=== PATIENT | male | born 1955 | race Caucasian/White ===

== ENCOUNTER 2019-05-12 07:32 | Outpatient (CLI) | payer OTHER ==
--- NOTE | 2019-05-12 11:24 | CT ---
CT OF THE ABDOMEN AND PELVIS WITH IV CONTRAST: HISTORY: Generalized abdominal pain and bloating for the last 2 months status EGD and colonoscopy. CONTRAST: 7 cc Isovue 370. COMPARISON: None. FINDINGS: There is mild right basilar atelectasis. There is elevation of the right hemidiaphragm. There is diffuse fatty infiltration. There is a hypodense mass within the medial left hepatic lobe t hat demonstrates internal Hounsfield characteristics on this postcontrast examination to be consisten t with a small cyst. There are additional hypodensities within the right and left hepatic lobe that cannot be characterized completely on this single-phase contrast-enhanced exam. There is a lesion wi thin the upper medial left hepatic lobe measuring 11.9 cm on image 27 of series 2. There is a subcen timeter lesion within the medial left hepatic lobe on image 27 of series 2 also present. There is an additional 9 mm lesion within the anterior right hepatic lobe on image 23 of series 2. This is seen in the background of fatty infiltration. There are numerous calcifications seen involving the pancreatic parenchyma likely related to chronic pancreatitis. No focal pancreatic lesion is evident. No drainable focal fluid collection is noted. No pathologically enlarged lymph nodes are evident within the upper abdomen. The adrenal glands and both kidneys appear within normal limits. The spleen is normal in size measur ing 10 cm. There are moderate calcifications involving the abdominopelvic vasculature. There is mild ectasia in volving the proximal infrarenal abdominal aorta measuring 2.6 cm on image 51 of series 2. No free fluid or enlarged lymph nodes are evident within the pelvis. The bladder is decompressed. T he rectum and perirectal soft tissues are unremarkable-appearing. The small and large bowel are of n ormal caliber. There is a normal appendix in the right lower quadrant. There is beam scattered artifact from the patient's left total hip prosthesis. There is scattered de generative and osteoarthritic change. 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 There are DISH-like abhijit nges involving the mid to lower thoracic spine. No syndesmotic formation is evident involving the lo wer lumbar spine to suggest the presence of an ankylosing spondylitis. No acute osseous abnormality is evident. IMPRESSION: 1. Hepatic hypodensities incompletely characterized on the current examination. I would recommend a followup CT of the abdomen utilizing a multiphase CT evaluation such as hepatic hemangioma protocol. This would be helpful to better characterize these lesions within the right and left hepatic lobe. The largest is seen within the medial left hepatic lobe measuring 2.2 cm and has internal Hounsfield characteristics of approximately 14 and consistent with a cyst. As a conservative measure, would re commend a followup CT evaluation for more definitive characterization. 2. CT changes of chronic pancreatitis. 3. Mild fatty liver. 4. Ankylosis of the sacroiliac joints. No definite flowing syndesmophyte formation is evident invol ving the lumbar spine. There are some mild diffuse idiopathic skeletal hyperostosis-like changes inv olving the lower thoracic and upper lumbar spine. The ankylosis of the sacroiliac joints is likely d egenerative in nature. 5. Mild ectasia of the infrarenal abdominal aorta with moderate vascular calcification. POS: OFF
[2019-05-12] MEDS ORDERED: ISOVUE-370 76%-LOCM 1 ML ONE (11:57)
== END 2019-05-12 07:33 | disposition home or self-care (01) ==
LOC: BICCT 07:32
PROVIDERS: ATTEND Internal Medicine Gastroenterology
DX: R10.9 Unspecified abdominal pain (principal); R93.2 Abnormal findings on diagnostic imaging of liver and biliary tract; K86.1 Other chronic pancreatitis; K76.0 Fatty (change of) liver, not elsewhere classified; M43.28 Fusion of spine, sacral and sacrococcygeal region; I77.811 Abdominal aortic ectasia; I70.90 Unspecified atherosclerosis
CPT/HCPCS: 74177; 82565; Q9966

== ENCOUNTER 2019-09-15 09:10 | Outpatient (CLI) | payer MEDICARE | END 2019-09-15 09:11 | disposition home or self-care (01) | LOC: CTENTCT 09:10 | PROVIDERS: ATTEND Student in an Organized Health Care Education/Training Program | DX: J32.9 Chronic sinusitis, unspecified (principal) | CPT/HCPCS: 70486 ==

== ENCOUNTER 2019-09-22 08:52 | Outpatient (CLI) | payer MEDICARE ==
--- NOTE | 2019-09-22 11:09 | MRI ---
MRI of thecervical spine: 09/22/2019 COMPARISON:None available HISTORY:Cervical radiculopathy TECHNIQUE: Multiplanar multisequence MR imaging of thecervical spine without contrast Findings:The sagittal STIR imaging demonstrates no focal area of osseous marrow edema. There is mild degenerative change at the atlantoaxial interspace. No anterolisthesis or retrolisthesi s is noted within the cervical spine. C2-3: No central canal or left neural foraminal stenosis. Mild right facet and uncovertebral osteophy te formation with mild right neural foraminal stenosis. C3-4: There is disc desiccation with mild disc space narrowing and mild disc bulge partially effacing the ventral thecal sac and causing mild central canal stenosis. Bilateral facet and uncovertebral osteophyte formation noted with moderate/severe bilateral neural foraminal stenosis, right greater th an left. C4-5: There is disc space narrowing with disc desiccation and disc bulge effacing the ventral thecal sac and causing a moderate/severe central canal stenosis. Bilateral facet and uncovertebral osteophyte formation with severe bilateral neural foraminal stenosis. C5-6: Disc space narrowing with disc desiccation and disc bulge. Mild central canal stenosis. Bilater al facet and uncovertebral osteophyte formation. Mild/moderate left neural foraminal stenosis. Severe right neural foraminal stenosis. C6-C7: There is disc space narrowing with disc desiccation and disc bulge. There is a small superimpo sed right paracentral disc protrusion. Mild central canal stenosis laterally on the left. Bilateral facet and uncovertebral osteophyte formation with moderate/severe bilateral neural foramina l stenosis. C7-T1: No significant central canal or neural foraminal stenosis. No focal area of abnormal signal intensity identified within the cervical cord IMPRESSION:Prominent multilevel cervical spine degenerative change as detailed above.
== END 2019-09-22 08:53 | disposition home or self-care (01) ==
LOC: BICMRI 08:52
PROVIDERS: ATTEND Specialist
DX: M47.22 Other spondylosis with radiculopathy, cervical region (principal)
CPT/HCPCS: 72141

== ENCOUNTER 2020-02-13 14:58 | Outpatient (CLI) | payer MEDICARE ==
--- NOTE | 2020-02-13 15:29 | RAD ---
RIGHT SHOULDER THREE VIEWS: 02/13/20 HISTORY: Right shoulder pain. FINDINGS/IMPRESSION: There are degenerative changes in the acromioclavicular joint. No fracture, dislocation, or bony dest ruction is seen. POS: [facility]
== END 2020-02-13 14:59 | disposition home or self-care (01) ==
LOC: BICRAD 14:58
PROVIDERS: ATTEND Nurse Practitioner Family
DX: M25.511 Pain in right shoulder (principal); M19.011 Primary osteoarthritis, right shoulder

== ENCOUNTER 2020-10-22 09:07 | Outpatient (CLI) | payer MEDICARE ==
--- NOTE | 2020-10-22 09:46 | CT ---
Exam: Noncontrast chest CT; CT lung scan low dose HISTORY:Low-dose screening lung CT. Nicotine dependence. Former smoker. 30 posterior smoking history. COMPARISON: None TECHNIQUE: Low-dose screening lung CT is performed utilizing institutional protocol FINDINGS: Lung screening specific (LUNG-RADS): Category 1. Negative exam. No suspicious masses or nodules. Potential significant incidentals (lung RADS category S): None Pulmonary incidentals:There is evidence of scarring and mild emphysematous changes involving both upp er lobes. Additional areas of atelectasis and scarring are noted in both lower lobes. There is a pleural-based density abutting the middle lobe, measuring 0.3 cm. Subpleural lymph node is favored. Other incidentals: Minimal coronary disease. Minimal atherosclerosis of a nonaneurysmal aorta. Puncta te calcifications along the pancreatic parenchyma are presumed to be due to remote bouts of infection/inflammation. There is elevation the right hemidiaphragm. Correlate for right hemidiaphragm atic paralysis IMPRESSION: 1. Lung RADS category 1. Negative exam. No suspicious masses or nodules 2. Lung Rask category S: Negative. No new or unknown potential significant incidental findings requir ing urgent additional evaluation 3. Other incidentals as above. Possible right hemidiaphragmatic paralysis. Additional evaluation if c linically warranted Recommendation: Continued routine annual low-dose lung screening CT. Follow-up in one year.
== END 2020-10-22 09:08 | disposition home or self-care (01) ==
LOC: BICCT 09:07
PROVIDERS: ATTEND Registered Nurse
DX: Z12.2 Encounter for screening for malignant neoplasm of respiratory organs (principal); Z87.891 Personal history of nicotine dependence; I70.0 Atherosclerosis of aorta; J98.6 Disorders of diaphragm; I25.10 Atherosclerotic heart disease of native coronary artery without angina pectoris; K86.89 Other specified diseases of pancreas
CPT/HCPCS: 71271

== ENCOUNTER 2021-07-02 07:04 | Inpatient (IN) | payer MEDICARE ==
[2021-07-02 08:09] LABS: #Eosinphils 0.1 thou/uL (0.0-0.7); #Lymphocytes 1.1 thou/uL (1.20-3.40); #Monocytes 0.4 thou/uL (0.11-0.59); #Neutrophils 6.2 thou/uL (1.40-6.50); %Basophils 0.3 % (0.0-1.0); %Eosinophils 0.6 % (0.0-10.0); %Lymphocytes 13.6 % (21.0-51.0); %Monocytes 5.1 % (0.0-10.0); %Neutrophils 80.3 % (42.0-75.0); Mean Corpuscular HGB CONC 32.4 g/dL (32.0-36.0); Mean Corpuscular Hemoglobin 32.1 pg (27.0-31.0); Mean Corpuscular Volume 99.1 fL (78.0-98.0); Mean Platelet Volume 7.1 fL (7.4-10.4); Platelet Count 175 thou/uL (130-400); RBC Distribution Width 11.9 % (11.5-14.5); Red Blood Cell (RBC) Count 4.68 mill/uL (4.70-6.10); White Blood Cell (WBC) Count 7.8 thou/uL (4.8-10.8)
[2021-07-02 08:14] LABS: ALT (SGPT) 43 U/L (8-55); AST (SGOT) 33 U/L (5-34); Alkaline Phosphatase 110 U/L (40-110); Anion Gap 13 mmol/L (10-20); BUN (Urea Nitrogen) 14 mg/dL (8.4-25.7); Bilirubin, Total 0.5 mg/dL (0.2-1.2); Calc. Creatinine Clearance 0 mL/min (70-130); Carbon Dioxide 27 mmol/L (23-31); Chloride 103 mmol/L (98-107); Glucose 135 mg/dL (80-115); Lipase 17 U/L (8-78); Potassium 4.2 mmol/L (3.5-5.1); Sodium 139 mmol/L (136-145)
[2021-07-02 08:35] LABS: CKMB 1.9 ng/mL (0-6.6)
[2021-07-02] MEDS ORDERED: Nitroglycerin 0.4 MG TAB (25 Tab Bottle) SL PRN ×2 (10:43→13:25)
[2021-07-02] MEDS ORDERED: Ondansetron ODT 4 MG TAB PO PRN (10:46)
[2021-07-02] MEDS ORDERED: Ondansetron PF 4 MG/2 ML Vial IVP PRN (10:46)
[2021-07-02 11:26] LABS: Troponin I 0.061 ng/mL (< 0.028)
[2021-07-02 11:31] LABS: Magnesium 1.9 mg/dL (1.6-2.6)
[2021-07-02] MEDS ORDERED: Aspirin Chewable 81 MG TAB PO SCH (13:30)
[2021-07-02] MEDS ORDERED: Nitroglycerin 2% Ointment 1 INCH/1 GM Packet TOP SCH (14:00)
[2021-07-02 14:41] LABS: Troponin I 0.079 ng/mL (< 0.028)
[2021-07-02 14:44] VITALS: BMI 31.6
[2021-07-02] MEDS ORDERED: FLU VACC QS2021-22(65YR UP)/PF 240 MCG/0.7 ML SYRINGE IM ONE (15:30)
[2021-07-02] MEDS: Acetaminophen 325 MG TAB PO PRN (16:18)
[2021-07-02] MEDS: Nitroglycerin 2% Ointment 1 INCH/1 GM Packet TOP SCH ×2 (17:08→22:41)
[2021-07-02 17:29] LABS: SARS-CoV-2 PCR by NAA Not Detected (NotDetected)
[2021-07-02] MEDS ORDERED: Pantoprazole 40 MG VIAL IVP SCH (18:15)
[2021-07-02] MEDS ORDERED: Morphine 4 MG/ML VIAL SLOW IVP PRN (18:28)
[2021-07-02] MEDS: Enoxaparin Sodium 100 MG/ML SYRINGE SC SCH (20:00)
[2021-07-02] MEDS: Metoprolol Tartrate 25 MG TAB PO SCH (20:01)
[2021-07-03 05:48] LABS: #Eosinphils 0.1 thou/uL (0.0-0.7); #Lymphocytes 1.5 thou/uL (1.20-3.40); #Monocytes 0.6 thou/uL (0.11-0.59); #Neutrophils 6.2 thou/uL (1.40-6.50); %Basophils 0.4 % (0.0-1.0); %Eosinophils 0.8 % (0.0-10.0); %Lymphocytes 17.5 % (21.0-51.0); %Monocytes 7.6 % (0.0-10.0); %Neutrophils 73.8 % (42.0-75.0); Hemoglobin 14.9 g/dL (14.0-18.0); Mean Corpuscular HGB CONC 32.9 g/dL (32.0-36.0); Mean Corpuscular Hemoglobin 32.4 pg (27.0-31.0); Mean Corpuscular Volume 98.3 fL (78.0-98.0); Platelet Count 173 thou/uL (130-400); Red Blood Cell (RBC) Count 4.59 mill/uL (4.70-6.10); White Blood Cell (WBC) Count 8.4 thou/uL (4.8-10.8)
[2021-07-03 05:53] LABS: Hemoglobin A1c 6.2 % (4.0-6.0)
[2021-07-03] MEDS: Enoxaparin Sodium 100 MG/ML SYRINGE SC SCH ×2 (05:58→18:09)
[2021-07-03] MEDS: Acetaminophen 325 MG TAB PO PRN ×3 (06:06→19:06)
[2021-07-03 06:09] LABS: Anion Gap 13 mmol/L (10-20); BUN (Urea Nitrogen) 15 mg/dL (8.4-25.7); Calc. Creatinine Clearance 105 mL/min (70-130); Carbon Dioxide 26 mmol/L (23-31); Cardiac Risk 6.3 (Less than 4.5); Chloride 102 mmol/L (98-107); Cholesterol 207 mg/dl (< 200 Desired); Glucose 108 mg/dL (80-115); HDL Cholesterol 33 mg/dL (>60 Neg Risk); LDL Cholesterol, Calculated 123 mg/dL; Potassium 4.2 mmol/L (3.5-5.1); Sodium 137 mmol/L (136-145); Triglycerides 254 mg/dL (Less than 150)
[2021-07-03] MEDS: Nitroglycerin 2% Ointment 1 INCH/1 GM Packet TOP SCH ×3 (06:20→22:27)
[2021-07-03] MEDS: Aspirin Chewable 81 MG TAB PO SCH (08:25)
[2021-07-03] MEDS: Metoprolol Tartrate 25 MG TAB PO SCH ×2 (13:17→20:41)
[2021-07-03] MEDS ORDERED: Communication Order-Pharmacy FS SCH (15:45)
[2021-07-03] MEDS ORDERED: Atorvastatin Calcium 40 MG TAB PO SCH (21:00)
[2021-07-03] MEDS ORDERED: Ketorolac Tromethamine 30 MG/ML VIAL IVP SCH (23:00)
[2021-07-04] MEDS ORDERED: Sodium Chloride 0.9% 500 ML IV SCH ×2 (00:01→08:15)
[2021-07-04] MEDS: Nitroglycerin 2% Ointment 1 INCH/1 GM Packet TOP SCH ×2 (06:06→15:21)
[2021-07-04] MEDS: Metoprolol Tartrate 25 MG TAB PO SCH (06:06)
[2021-07-04] MEDS: Aspirin Chewable 81 MG TAB PO SCH (06:06)
[2021-07-04] MEDS ORDERED: Nitroglycerin 100MG/250ML BOT 250 ML ONE (06:41)
[2021-07-04] MEDS ORDERED: Lidocaine 1% (PF) 30 ML VIAL ONE (06:41)
[2021-07-04] MEDS ORDERED: Verapamil 5 MG/2 ML VIAL ONE (06:41)
[2021-07-04] MEDS ORDERED: Heparin 10,000 UNITS/ 10 ML VIAL ONE (06:41)
[2021-07-04] MEDS ORDERED: Midazolam HCl 2 mg/2 ml Vial ONE (07:14)
[2021-07-04] MEDS ORDERED: Fentanyl 100 MCG/2 ML VIAL ONE (07:14)
[2021-07-04] MEDS ORDERED: Sodium Chloride 0.9% 200 ML IV PRN (08:08)
[2021-07-04] MEDS ORDERED: Ondansetron PF 4 MG/2 ML Vial ONE (08:19)
[2021-07-04 15:51] VITALS: BP 140/78; TEMP 98.3
[2021-07-04] MEDS ORDERED: Metoprolol Tartrate 25 MG TAB PO SCH (21:00)
== END 2021-07-04 16:35 | disposition home or self-care (01) | DRG 287 ==
LOC: ERS 07:04 → 2SW 10:06 → OBSVTOIN 07-04 13:30
PROVIDERS: ADMIT Internal Medicine; ATTEND Internal Medicine
PROC: 4A023N7 Measurement of Cardiac Sampling and Pressure, Left Heart, Percutaneous Approach (ICD-10-PCS; principal; 2021-07-04)
PROC: B2151ZZ Fluoroscopy of Left Heart using Low Osmolar Contrast (ICD-10-PCS; 2021-07-04)
PROC: B2111ZZ Fluoroscopy of Multiple Coronary Arteries using Low Osmolar Contrast (ICD-10-PCS; 2021-07-04)
DX: I25.110 Atherosclerotic heart disease of native coronary artery with unstable angina pectoris (principal); Z20.822 Contact with and (suspected) exposure to COVID-19; I10 Essential (primary) hypertension; E78.5 Hyperlipidemia, unspecified; Z96.642 Presence of left artificial hip joint; K21.9 Gastro-esophageal reflux disease without esophagitis; M48.02 Spinal stenosis, cervical region; Z88.5 Allergy status to narcotic agent; Z90.09 Acquired absence of other part of head and neck; Z87.891 Personal history of nicotine dependence; Z79.899 Other long term (current) drug therapy
CPT/HCPCS: 36415; 71045; 80048; 80053; 80061; 82553; 83036; 83690; 83735; 84443; 84484; 85025; 85347; 93005; 93010; 93306; 93458; 93571; 99152; 99153; C1769; C9113; J0153; J1644; J1650; J1885; J2001; J2250; J2270; J2405; J3010; J7030; Q0162; U0003; U0005

== ENCOUNTER 2021-07-05 08:04 | Inpatient (IN) | payer MEDICARE ==
[2021-07-05] MEDS ORDERED: Cyclobenzaprine 10 MG TAB ONE (08:28)
[2021-07-05] MEDS ORDERED: Aspirin Chewable 81 MG TAB ONE (08:28)
[2021-07-05 08:53] LABS: #Eosinphils 0.1 thou/uL (0.0-0.7); #Monocytes 0.6 thou/uL (0.11-0.59); #Neutrophils 4.2 thou/uL (1.40-6.50); %Basophils 0.4 % (0.0-1.0); %Eosinophils 1.2 % (0.0-10.0); %Monocytes 10.2 % (0.0-10.0); %Neutrophils 71.2 % (42.0-75.0); Hemoglobin 14.5 g/dL (14.0-18.0); Mean Corpuscular HGB CONC 32.7 g/dL (32.0-36.0); Mean Corpuscular Hemoglobin 32.1 pg (27.0-31.0); Platelet Count 141 thou/uL (130-400); RBC Distribution Width 11.9 % (11.5-14.5); White Blood Cell (WBC) Count 5.9 thou/uL (4.8-10.8)
[2021-07-05 09:13] LABS: ALT (SGPT) 34 U/L (8-55); AST (SGOT) 35 U/L (5-34); Albumin 4.1 g/dL (3.4-4.8); Alkaline Phosphatase 101 U/L (40-110); Anion Gap 16 mmol/L (10-20); BUN (Urea Nitrogen) 14 mg/dL (8.4-25.7); Bilirubin, Total 0.8 mg/dL (0.2-1.2); Calc. Creatinine Clearance 0 mL/min (70-130); Calcium 9.4 mg/dL (7.8-10.44); Carbon Dioxide 23 mmol/L (23-31); Chloride 105 mmol/L (98-107); Globulin 2.9 g/dL (2.4-3.5); Glucose 118 mg/dL (80-115); Lipase 17 U/L (8-78); Magnesium 1.8 mg/dL (1.6-2.6); Potassium 3.9 mmol/L (3.5-5.1); Sodium 140 mmol/L (136-145)
[2021-07-05 09:39] LABS: CKMB 3.3 ng/mL (0-6.6)
[2021-07-05] MEDS ORDERED: Enoxaparin Sodium 40 MG/0.4 ML SYRINGE SC SCH (10:30)
[2021-07-05] MEDS ORDERED: Ondansetron PF 4 MG/2 ML Vial IVP PRN (10:30)
[2021-07-05] MEDS ORDERED: Gabapentin 300 MG CAP PO SCH (10:45)
[2021-07-05] MEDS ORDERED: methylPREDNISolone Sod Succ 40 MG VIAL IVP SCH (10:45)
[2021-07-05] MEDS ORDERED: Ketamine 50 MG/ML (10ML VIAL) ONE (10:58)
[2021-07-05] MEDS ORDERED: Pantoprazole 40 MG VIAL IVP SCH ×2 (11:30→15:30)
[2021-07-05] MEDS ORDERED: methylPREDNISolone 4 mg Tablet PO SCH ×3 (12:00→21:00)
[2021-07-05 13:30] LABS: Troponin I 0.148 ng/mL (< 0.028)
[2021-07-05 15:15] LABS: Troponin I 0.137 ng/mL (< 0.028)
[2021-07-05] MEDS: Gabapentin 300 MG CAP PO SCH ×2 (16:27→20:23)
[2021-07-05] MEDS: Nitroglycerin 0.4 MG TAB (25 Tab Bottle) SL PRN ×2 (16:35→16:55)
[2021-07-05] MEDS ORDERED: Morphine 4 MG/ML VIAL SLOW IVP PRN (17:17)
[2021-07-05 17:29] VITALS: BMI 32.4
[2021-07-05] MEDS ORDERED: Nitroglycerin 2% Ointment 1 INCH/1 GM Packet ONE (17:46)
[2021-07-05] MEDS ORDERED: Nitroglycerin 2% Ointment 1 INCH/1 GM Packet TOP SCH (18:00)
[2021-07-05] MEDS ORDERED: Nitroglycerin 50 MG/250 ML BOT 250 ML ONE (18:15)
[2021-07-05 19:47] LABS: CKMB 3.1 ng/mL (0-6.6)
[2021-07-05] MEDS: Metoprolol Tartrate 25 MG TAB PO SCH (20:24)
[2021-07-05] MEDS: Atorvastatin Calcium 40 MG TAB PO SCH (20:25)
[2021-07-05] MEDS: Losartan 25 MG TAB PO SCH (20:26)
[2021-07-06] MEDS: Acetaminophen 325 MG TAB PO PRN ×4 (00:54→20:43)
[2021-07-06] MEDS: methylPREDNISolone 4 mg Tablet PO SCH ×3 (08:59→18:58)
[2021-07-06] MEDS ORDERED: Enoxaparin Sodium 40 MG/0.4 ML SYRINGE SC SCH (09:00)
[2021-07-06] MEDS ORDERED: Pantoprazole 40 MG VIAL IVP SCH (09:00)
[2021-07-06] MEDS ORDERED: FLU VACC QS2021-22(65YR UP)/PF 240 MCG/0.7 ML SYRINGE IM ONE (09:00)
[2021-07-06] MEDS ORDERED: Communication Order-Pharmacy FS SCH (09:02)
[2021-07-06] MEDS: Metoprolol Tartrate 25 MG TAB PO SCH ×2 (10:00→20:39)
[2021-07-06] MEDS ORDERED: Docusate 100 MG CAP PO SCH (10:00)
[2021-07-06] MEDS: Aspirin Chewable 81 MG TAB PO SCH (10:00)
[2021-07-06] MEDS ORDERED: Polyethylene Glycol 3350 17 GM Packet PO SCH (10:00)
[2021-07-06] MEDS: Gabapentin 300 MG CAP PO SCH ×3 (10:01→20:39)
[2021-07-06] MEDS: Bisoprolol Fumarate 5 MG TAB PO SCH (10:01)
[2021-07-06] MEDS: Atorvastatin Calcium 40 MG TAB PO SCH (20:38)
[2021-07-06] MEDS: Losartan 25 MG TAB PO SCH (20:39)
[2021-07-06] MEDS: Enoxaparin Sodium 100 MG/ML SYRINGE SC SCH (20:39)
[2021-07-06] MEDS: Docusate 100 MG CAP PO SCH (20:39)
[2021-07-06] MEDS ORDERED: methylPREDNISolone 4 mg Tablet PO SCH (21:00)
[2021-07-06] MEDS: Nitroglycerin 50 MG/250 ML BOT 250 ML IVPB SCH (22:15)
[2021-07-07] MEDS: Acetaminophen 325 MG TAB PO PRN ×2 (05:56→23:47)
[2021-07-07] MEDS: methylPREDNISolone 4 mg Tablet PO SCH ×4 (07:55→20:38)
[2021-07-07] MEDS: Bisoprolol Fumarate 5 MG TAB PO SCH (07:56)
[2021-07-07] MEDS: Docusate 100 MG CAP PO SCH ×2 (07:56→20:36)
[2021-07-07] MEDS: Aspirin Chewable 81 MG TAB PO SCH (07:56)
[2021-07-07] MEDS: Enoxaparin Sodium 100 MG/ML SYRINGE SC SCH ×2 (07:56→20:31)
[2021-07-07] MEDS: Gabapentin 300 MG CAP PO SCH ×3 (07:57→20:36)
[2021-07-07] MEDS: Metoprolol Tartrate 25 MG TAB PO SCH ×2 (07:58→20:37)
[2021-07-07] MEDS: Polyethylene Glycol 3350 17 GM Packet PO SCH (07:58)
[2021-07-07] MEDS: Atorvastatin Calcium 40 MG TAB PO SCH (20:37)
[2021-07-07] MEDS: Losartan 25 MG TAB PO SCH (20:37)
[2021-07-07] MEDS ORDERED: diphenhydrAMINE 25 MG CAP PO SCH (21:00)
[2021-07-08] MEDS: Nitroglycerin 50 MG/250 ML BOT 250 ML IVPB SCH (03:02)
[2021-07-08] MEDS: methylPREDNISolone 4 mg Tablet PO SCH ×2 (08:45→13:17)
[2021-07-08] MEDS: Aspirin Chewable 81 MG TAB PO SCH (08:46)
[2021-07-08] MEDS: Metoprolol Tartrate 25 MG TAB PO SCH (08:46)
[2021-07-08] MEDS: Bisoprolol Fumarate 5 MG TAB PO SCH (08:46)
[2021-07-08] MEDS: Gabapentin 300 MG CAP PO SCH ×3 (08:46→20:02)
[2021-07-08] MEDS: Docusate 100 MG CAP PO SCH (08:47)
[2021-07-08] MEDS: Polyethylene Glycol 3350 17 GM Packet PO SCH (08:47)
[2021-07-08] MEDS ORDERED: Albumin 5% 500 ML ONE (11:13)
[2021-07-08] MEDS ORDERED: Fentanyl 250 MCG/5 ML VIAL ONE (11:33)
[2021-07-08] MEDS ORDERED: Midazolam HCl 5 mg/5 ml Vial ONE (11:33)
[2021-07-08] MEDS ORDERED: Dexmedetomidine 200 MCG/2 ML VIAL ONE (11:33)
[2021-07-08] MEDS ORDERED: Heparin 10,000 UNITS/1 ML VIAL 30,000 UNITS in Sodium Chloride 0.9% 1,000 ML FS SCH (11:45)
[2021-07-08] MEDS ORDERED: SUGAMMADEX SODIUM 200 MG/2 ML VIAL ONE (11:45)
[2021-07-08] MEDS ORDERED: Protamine Sulfate 250 MG/25 ML VIAL ONE (12:16)
[2021-07-08] MEDS ORDERED: Cardioplegic Soln 1,000 ML BAG ONE (12:16)
[2021-07-08] MEDS ORDERED: Calcium Chloride 1 GM/10 ML Abboject SYRINGE ONE (12:16)
[2021-07-08] MEDS ORDERED: PROPOFOL 200 MG/20 ML VIAL ONE (12:16)
[2021-07-08] MEDS ORDERED: Dexamethasone 20 MG/5 ML VIAL ONE (12:16)
[2021-07-08] MEDS ORDERED: Glycopyrrolate 0.2 MG/ML 5 ML SYRINGE ONE (12:16)
[2021-07-08] MEDS ORDERED: Potassium Chloride 60 MEQ/30 ML VIAL ONE (12:16)
[2021-07-08] MEDS ORDERED: Heparin 30,000 units/30 ml VIAL ONE (12:16)
[2021-07-08] MEDS ORDERED: Sodium Bicarb 50 MEQ/50 ML Abboject 8.4% SYRINGE ONE (12:16)
[2021-07-08] MEDS ORDERED: Papaverine 60 MG/2 ML VIAL ONE (12:16)
[2021-07-08] MEDS ORDERED: Heparin 5,000 UNITS/ML VIAL ONE (12:16)
[2021-07-08] MEDS ORDERED: Ondansetron PF 4 MG/2 ML Vial ONE (12:16)
[2021-07-08] MEDS ORDERED: Mannitol 12.5 GM/50 ML ONE (12:16)
[2021-07-08] MEDS ORDERED: Magnesium Sulfate 1 GM/2 ML VIAL ONE (12:16)
[2021-07-08] MEDS ORDERED: Vecuronium 10 MG VIAL ONE (12:16)
[2021-07-08] MEDS ORDERED: Lidocaine 2% PF 100 mg/5 ml Syringe ONE (12:16)
[2021-07-08] MEDS ORDERED: Thrombin 5000 UNITS/5 ML VIAL ONE (12:16)
[2021-07-08] MEDS ORDERED: Aminocaproic Acid 5 GM/20 ML VIAL ONE (12:16)
[2021-07-08] MEDS ORDERED: Nitroglycerin 50 MG/250 ML BOT ONE (12:16)
[2021-07-08] MEDS ORDERED: Lidocaine 1% PF 5 ML VIAL ONE (12:16)
[2021-07-08] MEDS ORDERED: Phenylephrine 10 MG/ML VIAL ONE (15:04)
[2021-07-08] MEDS ORDERED: PHENYLEPHRINE-NS 100 MCG/ML 10 ML SYRINGE ONE (15:05)
[2021-07-08] MEDS ORDERED: Nitroglycerin 50 MG/250 ML BOT 250 ML IVPB PRN (18:26)
[2021-07-08] MEDS ORDERED: Bisacodyl 10 MG SUPP PR PRN (18:26)
[2021-07-08] MEDS ORDERED: hydrALAZINE 20 MG/ML VIAL SLOW IVP PRN (18:26)
[2021-07-08] MEDS ORDERED: Potassium Chloride 20 MEQ/100 ML PREMIX BAG IVPB PRN (18:26)
[2021-07-08] MEDS ORDERED: CEFAZOLIN 2 GM in Premix Bag 1 BAG IVPB SCH (18:26)
[2021-07-08] MEDS ORDERED: traMADol HCl 50 MG TAB PO PRN (18:26)
[2021-07-08] MEDS ORDERED: Post-Op Insulin Drip Protocol IVPB ONE (18:26)
[2021-07-08] MEDS ORDERED: Guaifenesin DM 100-10/5 ML UDCUP PO PRN (18:26)
[2021-07-08] MEDS ORDERED: niCARdipine 25 MG in Sodium Chloride 0.9% 250 ML 240 ML IVPB PRN (18:26)
[2021-07-08] MEDS ORDERED: Mag-Al 1200 mg/1200 mg/30 ML UDCUP PO PRN (18:26)
[2021-07-08] MEDS ORDERED: Bisacodyl 5 MG TAB PO PRN (18:26)
[2021-07-08] MEDS ORDERED: Hetastarch 6% 500 ML 500 ML IVPB PRN (18:26)
[2021-07-08] MEDS ORDERED: DOPamine 400 MG/D5W 250 ML 250 ML IVPB PRN (18:26)
[2021-07-08] MEDS ORDERED: Norepinephrine 8 MG/0.9% NS 250 ML IVPB PRN (18:26)
[2021-07-08 18:44] LABS: #Eosinphils 0.1 thou/uL (0.0-0.7); #Monocytes 0.9 thou/uL (0.11-0.59); #Neutrophils 14.9 thou/uL (1.40-6.50); %Basophils 0.2 % (0.0-1.0); %Eosinophils 0.5 % (0.0-10.0); %Lymphocytes 11.1 % (21.0-51.0); %Monocytes 4.9 % (0.0-10.0); %Neutrophils 83.3 % (42.0-75.0); Hemoglobin 14.3 g/dL (14.0-18.0); Mean Corpuscular HGB CONC 33.7 g/dL (32.0-36.0); Mean Corpuscular Hemoglobin 33.6 pg (27.0-31.0); Mean Corpuscular Volume 99.7 fL (78.0-98.0); Mean Platelet Volume 6.9 fL (7.4-10.4); Platelet Count 138 thou/uL (130-400); RBC Distribution Width 12.2 % (11.5-14.5); Red Blood Cell (RBC) Count 4.25 mill/uL (4.70-6.10); White Blood Cell (WBC) Count 17.9 thou/uL (4.8-10.8)
[2021-07-08] MEDS ORDERED: Morphine 4 MG/ML VIAL SLOW IVP PRN (18:45)
[2021-07-08] MEDS ORDERED: Dextrose 5% in Water 1,000 ML IV PRN (18:45)
[2021-07-08] MEDS ORDERED: HUMULIN R 100 UNITS in Sodium Chloride 0.9% 100 ML IVPB SCH (18:45)
[2021-07-08] MEDS ORDERED: Dextrose 50% Abboject 50 ML SYRINGE SLOW IVP PRN (18:45)
[2021-07-08 18:50] LABS: Actual Bicarbonate (HCO3a) 21.8 mEq/L (22-28); Base Excess (BEa) -4.6 mEq/L (-2.0 to +3.0); CO2 Tension 45.1 mmHg (35.0-45.0); Calcium, Ionized (arterial) 1.18 mmol/L (1.12-1.30); Carboxyhemoglobin (COHb) 0.2 gm% (0.0-3.0); Hemoglobin (Hb) 14.5 g/dL (14.0-18.0); O2 Tension (PaO2), arterial 76.9 mmHg (> 80.0); Potassium - ABG Lab 4.35 mmol/L (3.70-5.30)
[2021-07-08 18:57] LABS: INR-International Normal Ratio 1.3; PTT 27.5 sec (22.9-36.1); Prothrombin Time 15.9 sec (12.0-14.7)
[2021-07-08 18:59] LABS: ALV-art Gradient 294.525 mmHg (0-20); Puncture Site Arterial Line
[2021-07-08 19:06] LABS: Anion Gap 13 mmol/L (10-20); BUN (Urea Nitrogen) 18 mg/dL (8.4-25.7); Calc. Creatinine Clearance 122 mL/min (70-130); Calcium 8.2 mg/dL (7.8-10.44); Carbon Dioxide 24 mmol/L (23-31); Chloride 109 mmol/L (98-107); Glucose 180 mg/dL (80-115); Potassium 4.5 mmol/L (3.5-5.1); Sodium 141 mmol/L (136-145)
[2021-07-08] MEDS: Lactated Ringer's 1,000 ML IV SCH (19:26)
[2021-07-08] MEDS: Atorvastatin Calcium 40 MG TAB PO SCH (20:01)
[2021-07-08] MEDS: Famotidine/PF 20 mg/2ml Vial SLOW IVP SCH (20:01)
[2021-07-08] MEDS ORDERED: Albumin 25% 0 ML ONE (20:06)
[2021-07-08] MEDS ORDERED: Albumin 5% 250 ML ONE (20:09)
[2021-07-08] MEDS: ceFAZolin Sodium/D5W 2 GM in Premix Bag 1 BAG IVPB SCH (20:57)
[2021-07-08] MEDS: Insulin Regular 300 UNITS/3 ML VIAL SC PRN (22:27)
[2021-07-08] MEDS: Fentanyl 100 MCG/2 ML VIAL SLOW IVP PRN (22:29)
[2021-07-09] MEDS: Ketorolac Tromethamine 30 MG/ML VIAL IVP SCH ×5 (00:17→23:49)
[2021-07-09 00:49] LABS: Hemoglobin 12.8 g/dL (14.0-18.0)
[2021-07-09 01:03] LABS: Potassium 4.3 mmol/L (3.5-5.1)
[2021-07-09] MEDS: Insulin Regular 300 UNITS/3 ML VIAL SC PRN ×2 (01:26→06:18)
[2021-07-09] MEDS: Fentanyl 100 MCG/2 ML VIAL SLOW IVP PRN ×4 (03:00→17:05)
[2021-07-09] MEDS: ceFAZolin Sodium/D5W 2 GM in Premix Bag 1 BAG IVPB SCH ×2 (03:00→12:44)
[2021-07-09] MEDS: Ondansetron PF 4 MG/2 ML Vial IVP PRN ×4 (03:32→23:50)
[2021-07-09 04:41] LABS: #Lymphocytes 0.9 thou/uL (1.20-3.40); #Neutrophils 13.2 thou/uL (1.40-6.50); %Basophils 0.2 % (0.0-1.0); %Eosinophils 0.1 % (0.0-10.0); %Lymphocytes 5.9 % (21.0-51.0); %Monocytes 6.5 % (0.0-10.0); %Neutrophils 87.3 % (42.0-75.0); Hemoglobin 12.1 g/dL (14.0-18.0); Mean Corpuscular HGB CONC 32.9 g/dL (32.0-36.0); Mean Corpuscular Hemoglobin 32.8 pg (27.0-31.0); Mean Corpuscular Volume 99.8 fL (78.0-98.0); Mean Platelet Volume 7.4 fL (7.4-10.4); Platelet Count 151 thou/uL (130-400); RBC Distribution Width 12.2 % (11.5-14.5); Red Blood Cell (RBC) Count 3.69 mill/uL (4.70-6.10); White Blood Cell (WBC) Count 15.1 thou/uL (4.8-10.8)
[2021-07-09 04:52] LABS: Anion Gap 12 mmol/L (10-20); BUN (Urea Nitrogen) 20 mg/dL (8.4-25.7); Calc. Creatinine Clearance 104 mL/min (70-130); Calcium 7.9 mg/dL (7.8-10.44); Carbon Dioxide 27 mmol/L (23-31); Chloride 106 mmol/L (98-107); Glucose 151 mg/dL (80-115); Potassium 4.5 mmol/L (3.5-5.1); Sodium 140 mmol/L (136-145)
[2021-07-09] MEDS ORDERED: methylPREDNISolone 4 mg Tablet PO SCH (08:00)
[2021-07-09] MEDS: Lactated Ringer's 1,000 ML IV SCH (08:23)
[2021-07-09] MEDS: Aspirin 325 MG TAB PO SCH (08:24)
[2021-07-09] MEDS: Gabapentin 300 MG CAP PO SCH ×3 (08:24→21:04)
[2021-07-09] MEDS: Famotidine/PF 20 mg/2ml Vial SLOW IVP SCH (08:24)
[2021-07-09] MEDS: Polyethylene Glycol 3350 17 GM Packet PO SCH (08:40)
[2021-07-09] MEDS: HYDROcodone/Acetaminophen 5/325 mg Tablet PO PRN ×4 (09:46→23:49)
[2021-07-09] MEDS ORDERED: Dextrose 5% in Water 1,000 ML IV PRN (15:14)
[2021-07-09] MEDS ORDERED: Zolpidem Tartrate 5 MG TAB PO PRN (15:14)
[2021-07-09] MEDS ORDERED: Mineral Oil ENEMA PR PRN (15:14)
[2021-07-09] MEDS ORDERED: diphenhydrAMINE 25 MG CAP PO PRN (15:14)
[2021-07-09] MEDS ORDERED: Nitroglycerin 0.4 MG TAB (25 Tab Bottle) SL PRN (15:14)
[2021-07-09] MEDS ORDERED: Insulin Regular 300 UNITS/3 ML VIAL SC PRN (15:14)
[2021-07-09] MEDS ORDERED: Dextrose 50% Abboject 50 ML SYRINGE SLOW IVP PRN (15:14)
[2021-07-09] MEDS: Atorvastatin Calcium 40 MG TAB PO SCH (21:04)
[2021-07-09] MEDS: tiZANidine HCl 4 MG TAB PO PRN (23:50)
[2021-07-10] MEDS: Ketorolac Tromethamine 30 MG/ML VIAL IVP SCH ×3 (05:37→17:39)
[2021-07-10] MEDS ORDERED: methylPREDNISolone 4 mg Tablet PO SCH (08:00)
[2021-07-10] MEDS ORDERED: Bisoprolol Fumarate 5 MG TAB PO SCH (09:00)
[2021-07-10] MEDS: Polyethylene Glycol 3350 17 GM Packet PO SCH (09:23)
[2021-07-10] MEDS: Aspirin 325 MG TAB PO SCH (09:23)
[2021-07-10] MEDS: Potassium Chloride 10 MEQ TAB PO SCH (09:23)
[2021-07-10] MEDS: Gabapentin 300 MG CAP PO SCH ×3 (09:24→20:21)
[2021-07-10] MEDS: tiZANidine HCl 4 MG TAB PO PRN (09:25)
[2021-07-10] MEDS: Furosemide 40 MG TAB PO SCH (09:25)
[2021-07-10] MEDS: Ondansetron PF 4 MG/2 ML Vial IVP PRN ×2 (09:28→21:30)
[2021-07-10] MEDS: HYDROcodone/Acetaminophen 5/325 mg Tablet PO PRN ×3 (09:42→21:30)
[2021-07-10] MEDS: Atorvastatin Calcium 40 MG TAB PO SCH (20:21)
[2021-07-11] MEDS: Ketorolac Tromethamine 30 MG/ML VIAL IVP SCH ×2 (01:15→06:27)
[2021-07-11] MEDS: HYDROcodone/Acetaminophen 5/325 mg Tablet PO PRN (01:15)
[2021-07-11 04:35] LABS: #Eosinphils 0.1 thou/uL (0.0-0.7); #Lymphocytes 1.5 thou/uL (1.20-3.40); #Monocytes 1.2 thou/uL (0.11-0.59); %Basophils 0.3 % (0.0-1.0); %Eosinophils 0.6 % (0.0-10.0); %Lymphocytes 10.7 % (21.0-51.0); %Monocytes 8.8 % (0.0-10.0); %Neutrophils 79.6 % (42.0-75.0); Hemoglobin 10.8 g/dL (14.0-18.0); Mean Corpuscular HGB CONC 34.5 g/dL (32.0-36.0); Mean Corpuscular Hemoglobin 34.5 pg (27.0-31.0); Mean Corpuscular Volume 99.8 fL (78.0-98.0); Mean Platelet Volume 7.5 fL (7.4-10.4); Platelet Count 128 thou/uL (130-400); RBC Distribution Width 11.8 % (11.5-14.5); Red Blood Cell (RBC) Count 3.14 mill/uL (4.70-6.10); White Blood Cell (WBC) Count 13.8 thou/uL (4.8-10.8)
[2021-07-11 04:46] LABS: Anion Gap 10 mmol/L (10-20); BUN (Urea Nitrogen) 23 mg/dL (8.4-25.7); Calc. Creatinine Clearance 93 mL/min (70-130); Calcium 8.3 mg/dL (7.8-10.44); Carbon Dioxide 28 mmol/L (23-31); Chloride 100 mmol/L (98-107); Glucose 123 mg/dL (80-115); Magnesium 2.2 mg/dL (1.6-2.6); Potassium 3.9 mmol/L (3.5-5.1); Sodium 134 mmol/L (136-145)
[2021-07-11] MEDS: Gabapentin 300 MG CAP PO SCH ×3 (09:05→21:06)
[2021-07-11] MEDS: Potassium Chloride 10 MEQ TAB PO SCH (09:05)
[2021-07-11] MEDS: Bisoprolol Fumarate 5 MG TAB PO SCH (09:06)
[2021-07-11] MEDS: Furosemide 40 MG TAB PO SCH (09:06)
[2021-07-11] MEDS: Polyethylene Glycol 3350 17 GM Packet PO SCH (09:06)
[2021-07-11] MEDS: Aspirin 325 MG TAB PO SCH (09:06)
[2021-07-11] MEDS: Acetaminophen 325 MG TAB PO PRN (17:50)
[2021-07-11] MEDS ORDERED: diphenhydrAMINE 25 MG CAP PO SCH (21:01)
[2021-07-11] MEDS: Atorvastatin Calcium 40 MG TAB PO SCH (21:06)
[2021-07-12] MEDS: Acetaminophen 325 MG TAB PO PRN (06:23)
[2021-07-12 07:32] VITALS: BP 121/73; TEMP 99
[2021-07-12] MEDS: Gabapentin 300 MG CAP PO SCH (08:35)
[2021-07-12] MEDS: Furosemide 40 MG TAB PO SCH (08:36)
[2021-07-12] MEDS: Potassium Chloride 10 MEQ TAB PO SCH (08:36)
[2021-07-12] MEDS: Aspirin 325 MG TAB PO SCH (08:36)
[2021-07-12] MEDS: Bisoprolol Fumarate 5 MG TAB PO SCH (08:36)
[2021-07-12] MEDS: Polyethylene Glycol 3350 17 GM Packet PO SCH (08:37)
[2021-07-12] MEDS ORDERED: Losartan 25 MG TAB PO SCH (09:00)
== END 2021-07-12 11:47 | disposition home or self-care (01) | DRG 234 ==
LOC: ERS 08:04 → 2NO 10:15 → CCU 18:45 → 2NO 07-09 14:57
PROVIDERS: ADMIT Internal Medicine; ATTEND Internal Medicine
PROC: 4A023N7 Measurement of Cardiac Sampling and Pressure, Left Heart, Percutaneous Approach (ICD-10-PCS; 2021-07-04)
PROC: B2151ZZ Fluoroscopy of Left Heart using Low Osmolar Contrast (ICD-10-PCS; 2021-07-04)
PROC: B2111ZZ Fluoroscopy of Multiple Coronary Arteries using Low Osmolar Contrast (ICD-10-PCS; 2021-07-04)
PROC: 021209W Bypass Coronary Artery, Three Arteries from Aorta with Autologous Venous Tissue, Open Approach (ICD-10-PCS; principal; 2021-07-08)
PROC: 02100Z9 Bypass Coronary Artery, One Artery from Left Internal Mammary, Open Approach (ICD-10-PCS; 2021-07-08)
PROC: 02100AW Bypass Coronary Artery, One Artery from Aorta with Autologous Arterial Tissue, Open Approach (ICD-10-PCS; 2021-07-08)
PROC: 06BQ0ZZ Excision of Left Saphenous Vein, Open Approach (ICD-10-PCS; 2021-07-08)
PROC: 03BC0ZZ Excision of Left Radial Artery, Open Approach (ICD-10-PCS; 2021-07-08)
PROC: 5A1221Z Performance of Cardiac Output, Continuous (ICD-10-PCS; 2021-07-08)
DX: I25.110 Atherosclerotic heart disease of native coronary artery with unstable angina pectoris (principal); E78.5 Hyperlipidemia, unspecified; Z96.642 Presence of left artificial hip joint; E66.9 Obesity, unspecified; K21.9 Gastro-esophageal reflux disease without esophagitis; M50.10 Cervical disc disorder with radiculopathy, unspecified cervical region; M48.02 Spinal stenosis, cervical region; Z90.89 Acquired absence of other organs; Z28.21 Immunization not carried out because of patient refusal; Z87.891 Personal history of nicotine dependence; Z88.5 Allergy status to narcotic agent; Z79.899 Other long term (current) drug therapy; Z79.82 Long term (current) use of aspirin; Z82.3 Family history of stroke; Z68.32 Body mass index [BMI] 32.0-32.9, adult; Z20.822 Contact with and (suspected) exposure to COVID-19; I10 Essential (primary) hypertension; Z90.09 Acquired absence of other part of head and neck
CPT/HCPCS: 36415; 36416; 36430; 71045; 72141; 72146; 76705; 80048; 80053; 80061; 82553; 82805; 82947; 83036; 83690; 83735; 83880; 84132; 84443; 84484; 85014; 85018; 85025; 85347; 85610; 85730; 86850; 86900; 86901; 93005; 93010; 93306; 93458; 93571; 93798; 94002; 94150; 96372; 96374; 96375; 97139; 99152; 99153; C1713; C1769; C1776; C9113; G0378; J0153; J1100; J1644; J1650; J1815; J1885; J2001; J2150; J2250; J2270; J2370; J2405; J2440; J2704; J2720; J2920; J3010; J3370; J3475; J3480; J3490; J7030; J7120; J7509; P9045; Q0162; Q9967; S0017; S0028; U0003; U0005

== ENCOUNTER 2021-08-13 17:20 | Inpatient (IN) | payer MEDICARE ==
[~2021-08-13 17:20] MED LIST: ISOVUE-370 76%-LOCM 1 ML ONE
[2021-08-13] MEDS ORDERED: Aspirin 325 MG TAB ONE (18:02)
[2021-08-13] MEDS ORDERED: Vancomycin 1 GM/200 ML BAG ONE (18:02)
[2021-08-13] MEDS ORDERED: Piperacillin/Tazobactam 3.375 GM VIAL ONE (18:02)
[2021-08-13 18:15] LABS: #Lymphocytes 0.5 thou/uL (1.20-3.40); #Monocytes 0.4 thou/uL (0.11-0.59); #Neutrophils 8.9 thou/uL (1.40-6.50); %Basophils 0.1 % (0.0-1.0); %Eosinophils 0.2 % (0.0-10.0); %Lymphocytes 5.2 % (21.0-51.0); %Monocytes 4.2 % (0.0-10.0); %Neutrophils 90.4 % (42.0-75.0); Hemoglobin 12.9 g/dL (14.0-18.0); Mean Corpuscular HGB CONC 34.3 g/dL (32.0-36.0); Mean Corpuscular Hemoglobin 32.1 pg (27.0-31.0); Mean Corpuscular Volume 93.7 fL (78.0-98.0); Mean Platelet Volume 6.6 fL (7.4-10.4); Platelet Count 255 thou/uL (130-400); RBC Distribution Width 12.8 % (11.5-14.5); Red Blood Cell (RBC) Count 4.02 mill/uL (4.70-6.10); White Blood Cell (WBC) Count 9.9 thou/uL (4.8-10.8)
[2021-08-13 18:41] LABS: ALT (SGPT) 16 U/L (8-55); AST (SGOT) 17 U/L (5-34); Albumin 3.9 g/dL (3.4-4.8); Alkaline Phosphatase 148 U/L (40-110); Anion Gap 16 mmol/L (10-20); BUN (Urea Nitrogen) 15 mg/dL (8.4-25.7); Bilirubin, Total 0.5 mg/dL (0.2-1.2); Calc. Creatinine Clearance 0 mL/min (70-130); Calcium 8.8 mg/dL (7.8-10.44); Carbon Dioxide 25 mmol/L (23-31); Chloride 104 mmol/L (98-107); Globulin 2.8 g/dL (2.4-3.5); Glucose 158 mg/dL (80-115); Potassium 3.8 mmol/L (3.5-5.1); Protein, Total 6.7 g/dL (5.8-8.1); Sodium 141 mmol/L (136-145)
[2021-08-13 19:13] LABS: SARS-CoV-2 NAA Rapid Test Not Detected (NotDetected)
[2021-08-13] MEDS ORDERED: Morphine 4 MG/ML VIAL ONE (19:31)
[2021-08-13] MEDS ORDERED: Morphine 4 MG/ML VIAL SLOW IVP PRN (21:06)
[2021-08-13] MEDS ORDERED: Acetaminophen 650 MG Suppository PR PRN (21:09)
[2021-08-13] MEDS ORDERED: HYDROcodone/Acetaminophen 5/325 mg Tablet PO PRN (21:09)
[2021-08-13 21:10] LABS: Troponin I Less than 0.010 ng/mL (< 0.028)
[2021-08-13] MEDS ORDERED: Sodium Chloride 0.9% 1,000 ML IV SCH (21:30)
[2021-08-13] MEDS ORDERED: Piperacillin/Tazobactam 3.375 GM in Sodium Chloride 0.9% 100 ML IVPB SCH (22:00)
[2021-08-13] MEDS: Sodium Chloride 0.9% 1,000 ML IV SCH (23:22)
[2021-08-14 00:30] VITALS: BMI 30.6
[2021-08-14 00:51] LABS: Troponin I 0.011 ng/mL (< 0.028)
[2021-08-14] MEDS: Piperacillin/Tazobactam 3.375 GM in Sodium Chloride 0.9% 100 ML IVPB SCH ×3 (02:51→18:09)
[2021-08-14 03:32] LABS: Hemoglobin A1c 5.8 % (4.0-6.0)
[2021-08-14 03:49] LABS: Anion Gap 16 mmol/L (10-20); BUN (Urea Nitrogen) 14 mg/dL (8.4-25.7); Calc. Creatinine Clearance 89 mL/min (70-130); Calcium 8.6 mg/dL (7.8-10.44); Carbon Dioxide 20 mmol/L (23-31); Chloride 106 mmol/L (98-107); Glucose 105 mg/dL (80-115); Potassium 4.1 mmol/L (3.5-5.1); Sodium 138 mmol/L (136-145)
[2021-08-14 04:09] LABS: Band 35 % (5-11); Hemoglobin 12.9 g/dL (14.0-18.0); Lymphocytes 8 % (21-51); MDiff Complete? YES; Mean Corpuscular HGB CONC 32.6 g/dL (32.0-36.0); Mean Corpuscular Hemoglobin 31.6 pg (27.0-31.0); Mean Corpuscular Volume 96.7 fL (78.0-98.0); Mean Platelet Volume 6.6 fL (7.4-10.4); Monocytes 3 % (0-10); Neutrophil 54 % (42-75); Platelet Count 243 thou/uL (130-400); White Blood Cell (WBC) Count 12.4 thou/uL (4.8-10.8)
[2021-08-14] MEDS ORDERED: Sodium Chloride 0.9% 1,000 ML IV SCH ×3 (06:15→11:30)
[2021-08-14] MEDS: VANCOMYCIN 1.25 GM/250 ML BAG 1.25 GM in Premix Bag 1 BAG IVPB SCH ×2 (06:30→18:08)
[2021-08-14] MEDS ORDERED: Lactated Ringer's 1,000 ML IV SCH ×2 (08:45→15:00)
[2021-08-14] MEDS ORDERED: Enoxaparin Sodium 40 MG/0.4 ML SYRINGE SC SCH (09:00)
[2021-08-14] MEDS: Aspirin Chewable 81 MG TAB PO SCH (09:17)
[2021-08-14] MEDS: Gabapentin 300 MG CAP PO SCH ×3 (09:17→20:18)
[2021-08-14] MEDS: Lidocaine 5% Patch TD SCH (09:17)
[2021-08-14] MEDS ORDERED: Heparin 1,000 UNITS/ML VIAL ONE (09:20)
[2021-08-14] MEDS: Acetaminophen 325 MG TAB PO PRN ×2 (11:35→18:34)
[2021-08-14] MEDS: Guaifenesin DM 100-10/5 ML UDCUP PO PRN ×2 (12:26→18:09)
[2021-08-14 14:16] LABS: Legionella Urinary Ag Negative (Negative); Strep pneumo Urine Ag NEGATIVE (NEGATIVE)
[2021-08-14] MEDS: Sodium Chloride 0.9% 1,000 ML IV SCH ×2 (14:40→18:09)
[2021-08-14 15:20] LABS: Lactic Acid 3.2 mmol/L (0.5-2.2)
[2021-08-14] MEDS: traZODone HCl 150 MG TAB PO SCH (20:22)
[2021-08-14] MEDS ORDERED: Atorvastatin Calcium 40 MG TAB PO SCH (21:00)
[2021-08-14] MEDS ORDERED: Atorvastatin Calcium 10 MG TAB PO SCH (22:30)
[2021-08-15] MEDS: Piperacillin/Tazobactam 3.375 GM in Sodium Chloride 0.9% 100 ML IVPB SCH ×3 (02:05→22:31)
[2021-08-15] MEDS: Sodium Chloride 0.9% 1,000 ML IV SCH ×3 (02:09→22:53)
[2021-08-15] MEDS: Acetaminophen 325 MG TAB PO PRN ×3 (02:10→20:39)
[2021-08-15 04:59] LABS: #Lymphocytes 0.6 thou/uL (1.20-3.40); #Monocytes 0.4 thou/uL (0.11-0.59); %Basophils 0.2 % (0.0-1.0); %Eosinophils 0.3 % (0.0-10.0); %Monocytes 5.2 % (0.0-10.0); %Neutrophils 87.4 % (42.0-75.0); Hemoglobin 10.5 g/dL (14.0-18.0); Mean Corpuscular HGB CONC 32.8 g/dL (32.0-36.0); Mean Corpuscular Hemoglobin 31.7 pg (27.0-31.0); Mean Corpuscular Volume 96.7 fL (78.0-98.0); Mean Platelet Volume 6.7 fL (7.4-10.4); Platelet Count 163 thou/uL (130-400); RBC Distribution Width 12.8 % (11.5-14.5)
[2021-08-15 05:20] LABS: Vancomycin, Trough 13.9 ug/mL
[2021-08-15 05:21] LABS: ALT (SGPT) 12 U/L (8-55); AST (SGOT) 15 U/L (5-34); Albumin 2.8 g/dL (3.4-4.8); Alkaline Phosphatase 94 U/L (40-110); Anion Gap 12 mmol/L (10-20); BUN (Urea Nitrogen) 15 mg/dL (8.4-25.7); Bilirubin, Total 0.9 mg/dL (0.2-1.2); Calc. Creatinine Clearance 101 mL/min (70-130); Calcium 7.8 mg/dL (7.8-10.44); Carbon Dioxide 23 mmol/L (23-31); Chloride 108 mmol/L (98-107); Globulin 2.3 g/dL (2.4-3.5); Glucose 121 mg/dL (80-115); Potassium 3.8 mmol/L (3.5-5.1); Protein, Total 5.1 g/dL (5.8-8.1); Sodium 139 mmol/L (136-145)
[2021-08-15] MEDS: VANCOMYCIN 1.25 GM/250 ML BAG 1.25 GM in Premix Bag 1 BAG IVPB SCH ×2 (05:47→17:54)
[2021-08-15] MEDS: Lidocaine 5% Patch TD SCH (08:58)
[2021-08-15] MEDS: Gabapentin 300 MG CAP PO SCH ×3 (08:58→20:38)
[2021-08-15] MEDS: Aspirin Chewable 81 MG TAB PO SCH (08:58)
[2021-08-15] MEDS ORDERED: Sodium Chloride 0.9% 100 ML ONE (09:51)
[2021-08-15] MEDS ORDERED: Piperacillin/Tazobactam 3.375 GM VIAL ONE (09:51)
[2021-08-15] MEDS ORDERED: Fentanyl 250 MCG/5 ML VIAL ONE (11:40)
[2021-08-15] MEDS ORDERED: Midazolam HCl 2 mg/2 ml Vial ONE (11:40)
[2021-08-15] MEDS ORDERED: Glycopyrrolate 0.2 MG/ML 5 ML SYRINGE ONE (12:00)
[2021-08-15] MEDS ORDERED: PROPOFOL 200 MG/20 ML VIAL ONE (12:00)
[2021-08-15] MEDS ORDERED: Ondansetron PF 4 MG/2 ML Vial ONE (12:00)
[2021-08-15] MEDS ORDERED: Rocuronium Bromide 10 MG/ML (10ML VIAL) ONE (12:00)
[2021-08-15] MEDS ORDERED: Lidocaine 1% PF 5 ML VIAL ONE (12:00)
[2021-08-15] MEDS ORDERED: SUGAMMADEX SODIUM 200 MG/2 ML VIAL ONE (12:45)
[2021-08-15] MEDS ORDERED: Promethazine HCl 25 MG/ML VIAL IM PRN (13:02)
[2021-08-15] MEDS ORDERED: Ondansetron HCl/PF 4 MG/2 ML Vial IVP PRN (13:02)
[2021-08-15] MEDS ORDERED: Promethazine HCl 25 MG/ML VIAL IVPB PRN (13:02)
[2021-08-15] MEDS ORDERED: Fentanyl 100 MCG/2 ML VIAL SLOW IVP PRN (14:01)
[2021-08-15] MEDS ORDERED: HYDROcodone/Acetaminophen 5/325 mg Tablet PO PRN (14:01)
[2021-08-15] MEDS: Atorvastatin Calcium 10 MG TAB PO SCH (20:38)
[2021-08-15] MEDS: traZODone HCl 150 MG TAB PO SCH (20:39)
[2021-08-15] MEDS ORDERED: traZODone HCl 50 MG TAB PO SCH ×2 (21:45→22:30)
[2021-08-16] MEDS ORDERED: Metoprolol Tartrate 5 MG/5 ML VIAL IVP SCH (02:30)
[2021-08-16 03:01] LABS: #Eosinphils 0.1 thou/uL (0.0-0.7); #Lymphocytes 0.9 thou/uL (1.20-3.40); #Monocytes 0.5 thou/uL (0.11-0.59); #Neutrophils 6.2 thou/uL (1.40-6.50); %Basophils 0.1 % (0.0-1.0); %Eosinophils 0.8 % (0.0-10.0); %Lymphocytes 11.6 % (21.0-51.0); %Monocytes 6.6 % (0.0-10.0); %Neutrophils 80.8 % (42.0-75.0); Hemoglobin 10.4 g/dL (14.0-18.0); Mean Corpuscular HGB CONC 32.9 g/dL (32.0-36.0); Mean Corpuscular Hemoglobin 32.2 pg (27.0-31.0); Mean Corpuscular Volume 97.9 fL (78.0-98.0); Mean Platelet Volume 6.7 fL (7.4-10.4); Platelet Count 181 thou/uL (130-400); Red Blood Cell (RBC) Count 3.24 mill/uL (4.70-6.10); White Blood Cell (WBC) Count 7.6 thou/uL (4.8-10.8)
[2021-08-16 03:23] LABS: Magnesium 1.7 mg/dL (1.6-2.6)
[2021-08-16 03:25] LABS: ALT (SGPT) 14 U/L (8-55); AST (SGOT) 17 U/L (5-34); Albumin 2.9 g/dL (3.4-4.8); Alkaline Phosphatase 91 U/L (40-110); Anion Gap 11 mmol/L (10-20); BUN (Urea Nitrogen) 13 mg/dL (8.4-25.7); Bilirubin, Total 0.4 mg/dL (0.2-1.2); Calc. Creatinine Clearance 103 mL/min (70-130); Calcium 8.1 mg/dL (7.8-10.44); Carbon Dioxide 24 mmol/L (23-31); Chloride 109 mmol/L (98-107); Globulin 3.1 g/dL (2.4-3.5); Glucose 122 mg/dL (80-115); Potassium 3.9 mmol/L (3.5-5.1); Sodium 140 mmol/L (136-145)
[2021-08-16] MEDS ORDERED: Magnesium Sulfate 4 GM in Sodium Chloride 0.9% 250 ML 250 ML IVPB SCH (04:30)
[2021-08-16] MEDS: VANCOMYCIN 1.25 GM/250 ML BAG 1.25 GM in Premix Bag 1 BAG IVPB SCH ×2 (06:34→18:06)
[2021-08-16] MEDS: Lidocaine 5% Patch TD SCH (08:44)
[2021-08-16] MEDS: Gabapentin 300 MG CAP PO SCH ×3 (08:44→20:59)
[2021-08-16] MEDS: Aspirin Chewable 81 MG TAB PO SCH (08:44)
[2021-08-16] MEDS: Piperacillin/Tazobactam 3.375 GM in Sodium Chloride 0.9% 100 ML IVPB SCH (08:44)
[2021-08-16] MEDS: Polyethylene Glycol 3350 17 GM Packet PO SCH (08:45)
[2021-08-16] MEDS: Enoxaparin Sodium 40 MG/0.4 ML SYRINGE SC SCH (08:45)
[2021-08-16] MEDS: Bisoprolol Fumarate/HCTZ 5 mg/6.25 mg Tablet PO SCH (09:18)
[2021-08-16] MEDS: Guaifenesin DM 100-10/5 ML UDCUP PO PRN (18:08)
[2021-08-16] MEDS: Acetaminophen 325 MG TAB PO PRN (20:59)
[2021-08-16] MEDS: Atorvastatin Calcium 10 MG TAB PO SCH (20:59)
[2021-08-16] MEDS: traZODone HCl 50 MG TAB PO PRN (20:59)
[2021-08-16] MEDS ORDERED: traZODone HCl 50 MG TAB PO SCH (21:00)
[2021-08-17 04:46] LABS: #Eosinphils 0.1 thou/uL (0.0-0.7); #Lymphocytes 0.7 thou/uL (1.20-3.40); #Monocytes 0.4 thou/uL (0.11-0.59); #Neutrophils 3.8 thou/uL (1.40-6.50); %Basophils 0.3 % (0.0-1.0); %Eosinophils 1.7 % (0.0-10.0); %Lymphocytes 14.4 % (21.0-51.0); %Monocytes 7.7 % (0.0-10.0); Hemoglobin 9.7 g/dL (14.0-18.0); Mean Corpuscular HGB CONC 32.8 g/dL (32.0-36.0); Mean Corpuscular Hemoglobin 31.7 pg (27.0-31.0); Mean Corpuscular Volume 96.5 fL (78.0-98.0); Mean Platelet Volume 6.8 fL (7.4-10.4); Platelet Count 169 thou/uL (130-400); Red Blood Cell (RBC) Count 3.07 mill/uL (4.70-6.10)
[2021-08-17 05:09] LABS: ALT (SGPT) 16 U/L (8-55); AST (SGOT) 16 U/L (5-34); Albumin 2.9 g/dL (3.4-4.8); Alkaline Phosphatase 80 U/L (40-110); Anion Gap 8 mmol/L (10-20); BUN (Urea Nitrogen) 10 mg/dL (8.4-25.7); Bilirubin, Total 0.3 mg/dL (0.2-1.2); Calc. Creatinine Clearance 124 mL/min (70-130); Calcium 8.1 mg/dL (7.8-10.44); Carbon Dioxide 26 mmol/L (23-31); Chloride 107 mmol/L (98-107); Globulin 2.7 g/dL (2.4-3.5); Glucose 107 mg/dL (80-115); Protein, Total 5.6 g/dL (5.8-8.1); Sodium 137 mmol/L (136-145)
[2021-08-17 05:14] LABS: Vancomycin, Trough 17.6 ug/mL
[2021-08-17] MEDS: VANCOMYCIN 1.25 GM/250 ML BAG 1.25 GM in Premix Bag 1 BAG IVPB SCH ×2 (05:59→18:06)
[2021-08-17] MEDS: Guaifenesin DM 100-10/5 ML UDCUP PO PRN ×2 (05:59→21:15)
[2021-08-17] MEDS: Polyethylene Glycol 3350 17 GM Packet PO SCH (10:43)
[2021-08-17] MEDS: Gabapentin 300 MG CAP PO SCH ×3 (10:43→21:15)
[2021-08-17] MEDS: Bisoprolol Fumarate/HCTZ 5 mg/6.25 mg Tablet PO SCH (10:43)
[2021-08-17] MEDS: Aspirin Chewable 81 MG TAB PO SCH (10:43)
[2021-08-17] MEDS: Potassium Chloride 10 MEQ TAB PO SCH (10:44)
[2021-08-17] MEDS: Enoxaparin Sodium 40 MG/0.4 ML SYRINGE SC SCH (10:44)
[2021-08-17] MEDS: Lidocaine 5% Patch TD SCH (10:45)
[2021-08-17] MEDS ORDERED: Furosemide 20 MG/2 ML VIAL SLOW IVP SCH (13:00)
[2021-08-17] MEDS: Acetaminophen 325 MG TAB PO PRN (19:38)
[2021-08-17] MEDS: traZODone HCl 50 MG TAB PO PRN (19:39)
[2021-08-17] MEDS: Atorvastatin Calcium 10 MG TAB PO SCH (21:15)
[2021-08-18] MEDS: VANCOMYCIN 1.25 GM/250 ML BAG 1.25 GM in Premix Bag 1 BAG IVPB SCH (05:09)
[2021-08-18] MEDS: Potassium Chloride 10 MEQ TAB PO SCH (08:23)
[2021-08-18] MEDS: Furosemide 40 MG TAB PO SCH (08:23)
[2021-08-18] MEDS: Enoxaparin Sodium 40 MG/0.4 ML SYRINGE SC SCH (09:49)
[2021-08-18] MEDS: Polyethylene Glycol 3350 17 GM Packet PO SCH (09:49)
[2021-08-18] MEDS: Bisoprolol Fumarate/HCTZ 5 mg/6.25 mg Tablet PO SCH (09:49)
[2021-08-18] MEDS: Lidocaine 5% Patch TD SCH (09:50)
[2021-08-18] MEDS: Aspirin Chewable 81 MG TAB PO SCH (09:50)
[2021-08-18] MEDS: Gabapentin 300 MG CAP PO SCH ×3 (09:50→20:39)
[2021-08-18] MEDS ORDERED: Furosemide 20 MG/2 ML VIAL SLOW IVP SCH (12:15)
[2021-08-18] MEDS: ceFAZolin Sodium/D5W 2 GM in Premix Bag 1 BAG IVPB SCH ×2 (16:44→23:26)
[2021-08-18] MEDS: Temazepam 15 MG CAP PO PRN (20:31)
[2021-08-18] MEDS: Atorvastatin Calcium 10 MG TAB PO SCH (20:33)
[2021-08-19] MEDS: Polyethylene Glycol 3350 17 GM Packet PO SCH (08:53)
[2021-08-19] MEDS: Bisoprolol Fumarate/HCTZ 5 mg/6.25 mg Tablet PO SCH (08:53)
[2021-08-19] MEDS: Aspirin Chewable 81 MG TAB PO SCH (08:54)
[2021-08-19] MEDS: Lidocaine 5% Patch TD SCH (08:54)
[2021-08-19] MEDS: Furosemide 40 MG TAB PO SCH (08:54)
[2021-08-19] MEDS: Enoxaparin Sodium 40 MG/0.4 ML SYRINGE SC SCH (08:54)
[2021-08-19] MEDS: Potassium Chloride 10 MEQ TAB PO SCH (08:54)
[2021-08-19] MEDS: Gabapentin 300 MG CAP PO SCH ×3 (08:54→20:33)
[2021-08-19] MEDS: ceFAZolin Sodium/D5W 2 GM in Premix Bag 1 BAG IVPB SCH ×3 (08:55→23:35)
[2021-08-19] MEDS: Atorvastatin Calcium 10 MG TAB PO SCH (20:32)
[2021-08-19] MEDS: Temazepam 15 MG CAP PO PRN (20:32)
[2021-08-20] MEDS: Lidocaine 5% Patch TD SCH (09:47)
[2021-08-20] MEDS: Aspirin Chewable 81 MG TAB PO SCH (09:48)
[2021-08-20] MEDS: Gabapentin 300 MG CAP PO SCH ×3 (09:48→22:02)
[2021-08-20] MEDS: Bisoprolol Fumarate/HCTZ 5 mg/6.25 mg Tablet PO SCH (09:49)
[2021-08-20] MEDS: Furosemide 40 MG TAB PO SCH (09:49)
[2021-08-20] MEDS: ceFAZolin Sodium/D5W 2 GM in Premix Bag 1 BAG IVPB SCH ×2 (09:49→19:57)
[2021-08-20] MEDS: Potassium Chloride 10 MEQ TAB PO SCH (09:49)
[2021-08-20] MEDS: Polyethylene Glycol 3350 17 GM Packet PO SCH (09:54)
[2021-08-20] MEDS ORDERED: Fentanyl 250 MCG/5 ML VIAL ONE (15:49)
[2021-08-20] MEDS ORDERED: Dexmedetomidine 200 MCG/2 ML VIAL ONE (15:49)
[2021-08-20] MEDS ORDERED: Phenylephrine 10 MG/ML VIAL ONE ×2 (15:50→16:23)
[2021-08-20] MEDS ORDERED: ceFAZolin 2 GM/DEX 5% 100 ML BAG ONE (15:55)
[2021-08-20] MEDS ORDERED: Bacitracin Zinc Ointment 30 gm TUBE ONE (15:56)
[2021-08-20] MEDS ORDERED: Neomycin-Polymyxin 1 ML AMP ONE ×3 (15:56→17:15)
[2021-08-20] MEDS ORDERED: Mineral Oil Sterile 10 ML VIAL ONE (15:56)
[2021-08-20] MEDS ORDERED: PROPOFOL 200 MG/20 ML VIAL ONE (16:23)
[2021-08-20] MEDS ORDERED: Lidocaine 1% PF 5 ML VIAL ONE (16:23)
[2021-08-20] MEDS ORDERED: Rocuronium Bromide 10 MG/ML (10ML VIAL) ONE (16:23)
[2021-08-20] MEDS ORDERED: Dexamethasone 20 MG/5 ML VIAL ONE (16:23)
[2021-08-20] MEDS ORDERED: Ondansetron PF 4 MG/2 ML Vial ONE (16:23)
[2021-08-20] MEDS ORDERED: ePHEDrine 50 MG/ML VIAL ONE (16:23)
[2021-08-20] MEDS ORDERED: Bupivacaine 0.25% 10 ML VIAL ONE ×2 (16:52→16:53)
[2021-08-20] MEDS ORDERED: EPINEPHrine 1 MG/ML AMP ONE (16:52)
[2021-08-20] MEDS ORDERED: Albumin 5% 250 ML ONE (17:32)
[2021-08-20] MEDS ORDERED: SUGAMMADEX SODIUM 200 MG/2 ML VIAL ONE (18:22)
[2021-08-20] MEDS ORDERED: Promethazine HCl 25 MG/ML VIAL IM PRN (19:11)
[2021-08-20] MEDS ORDERED: Ondansetron HCl/PF 4 MG/2 ML Vial IVP PRN (19:11)
[2021-08-20] MEDS ORDERED: Promethazine HCl 25 MG/ML VIAL IVPB PRN (19:11)
[2021-08-20] MEDS ORDERED: Fentanyl 100 MCG/2 ML VIAL ONE (19:31)
[2021-08-20] MEDS: Enoxaparin Sodium 40 MG/0.4 ML SYRINGE SC SCH (19:56)
[2021-08-20] MEDS ORDERED: Ondansetron PF 4 MG/2 ML Vial IVP PRN (20:29)
[2021-08-20] MEDS ORDERED: traMADol HCl 50 MG TAB PO PRN (20:29)
[2021-08-20] MEDS: Atorvastatin Calcium 10 MG TAB PO SCH (22:01)
[2021-08-20] MEDS: Acetaminophen 325 MG TAB PO PRN (22:01)
[2021-08-20] MEDS: Temazepam 15 MG CAP PO PRN (22:02)
[2021-08-21] MEDS: ceFAZolin Sodium/D5W 2 GM in Premix Bag 1 BAG IVPB SCH ×3 (01:30→16:25)
[2021-08-21] MEDS: Acetaminophen 325 MG TAB PO PRN ×3 (06:03→16:30)
[2021-08-21] MEDS: Bisoprolol Fumarate/HCTZ 5 mg/6.25 mg Tablet PO SCH (10:17)
[2021-08-21] MEDS: Furosemide 40 MG TAB PO SCH (10:17)
[2021-08-21] MEDS: Aspirin Chewable 81 MG TAB PO SCH (10:17)
[2021-08-21] MEDS: Gabapentin 300 MG CAP PO SCH ×2 (10:19→16:25)
[2021-08-21] MEDS: Enoxaparin Sodium 40 MG/0.4 ML SYRINGE SC SCH (10:19)
[2021-08-21] MEDS: Potassium Chloride 10 MEQ TAB PO SCH (10:20)
[2021-08-21] MEDS: Lidocaine 5% Patch TD SCH (10:20)
[2021-08-21] MEDS: Polyethylene Glycol 3350 17 GM Packet PO SCH (10:21)
[2021-08-21 16:37] VITALS: BP 117/65; TEMP 97.9
== END 2021-08-21 19:21 | disposition home or self-care (01) | DRG 856 ==
LOC: ERS 17:20 → 2NO 20:25
PROVIDERS: ADMIT Student in an Organized Health Care Education/Training Program; ATTEND Family Medicine
PROC: 02HV33Z Insertion of Infusion Device into Superior Vena Cava, Percutaneous Approach (ICD-10-PCS; principal; 2021-08-14)
PROC: B5181ZA Fluoroscopy of Superior Vena Cava using Low Osmolar Contrast, Guidance (ICD-10-PCS; 2021-08-14)
PROC: B548ZZA Ultrasonography of Superior Vena Cava, Guidance (ICD-10-PCS; 2021-08-14)
PROC: 0PB00ZZ Excision of Sternum, Open Approach (ICD-10-PCS; 2021-08-15)
PROC: 0KXJ0ZZ Transfer Left Thorax Muscle, Open Approach (ICD-10-PCS; 2021-08-20)
DX: T81.41XA Infection following a procedure, superficial incisional surgical site, initial encounter (principal); A41.01 Sepsis due to Methicillin susceptible Staphylococcus aureus; R65.20 Severe sepsis without septic shock; L02.213 Cutaneous abscess of chest wall; E87.2 Acidosis; I48.92 Unspecified atrial flutter; I47.1 Supraventricular tachycardia; Z20.822 Contact with and (suspected) exposure to COVID-19; I48.0 Paroxysmal atrial fibrillation; I25.10 Atherosclerotic heart disease of native coronary artery without angina pectoris; E78.5 Hyperlipidemia, unspecified; Z95.1 Presence of aortocoronary bypass graft; I25.2 Old myocardial infarction; Z88.5 Allergy status to narcotic agent; Z79.899 Other long term (current) drug therapy; Z79.82 Long term (current) use of aspirin; Z98.890 Other specified postprocedural states; Z90.89 Acquired absence of other organs; Z87.891 Personal history of nicotine dependence
CPT/HCPCS: 0240U; 36415; 36569; 71045; 71046; 71275; 80048; 80053; 80202; 83036; 83605; 83735; 83880; 84145; 84484; 85007; 85025; 85027; 86850; 86900; 86901; 87040; 87070; 87077; 87149; 87186; 87205; 87449; 87899; 93005; 93010; 93306; 94640; 96365; 96367; 96375; C1751; J0171; J1100; J1644; J1650; J1940; J2250; J2270; J2370; J2405; J2543; J2704; J3010; J3370; J3475; J3490; J7050; J7620; P9045; Q9966; S0020

== ENCOUNTER 2021-09-02 10:08 | Outpatient (CLI) | payer MEDICARE | END 2021-09-02 10:09 | disposition home or self-care (01) | LOC: BICRAD 10:08 | PROVIDERS: ATTEND Thoracic Surgery (Cardiothoracic Vascular Surgery) | DX: L76.82 Other postprocedural complications of skin and subcutaneous tissue (principal) | CPT/HCPCS: 71046 ==

== ENCOUNTER 2021-09-16 08:28 | Inpatient (IN) | payer MEDICARE ==
[2021-09-16 09:48] LABS: #Lymphocytes 0.6 thou/uL (1.20-3.40); #Monocytes 0.3 thou/uL (0.11-0.59); #Neutrophils 3.6 thou/uL (1.40-6.50); %Basophils 0.3 % (0.0-1.0); %Eosinophils 0.2 % (0.0-10.0); %Lymphocytes 13.9 % (21.0-51.0); %Neutrophils 79.5 % (42.0-75.0); Hemoglobin 13.5 g/dL (14.0-18.0); Mean Corpuscular HGB CONC 32.5 g/dL (32.0-36.0); Mean Corpuscular Hemoglobin 28.4 pg (27.0-31.0); Mean Corpuscular Volume 87.5 fL (78.0-98.0); Mean Platelet Volume 7.9 fL (7.4-10.4); Platelet Count 188 thou/uL (130-400); RBC Distribution Width 14.3 % (11.5-14.5); Red Blood Cell (RBC) Count 4.73 mill/uL (4.70-6.10); White Blood Cell (WBC) Count 4.5 thou/uL (4.8-10.8)
[2021-09-16 10:12] LABS: ALT (SGPT) Less than 7 U/L (8-55); AST (SGOT) 23 U/L (5-34); Albumin 3.5 g/dL (3.4-4.8); Alkaline Phosphatase 98 U/L (40-110); Anion Gap 20 mmol/L (10-20); BUN (Urea Nitrogen) 15 mg/dL (8.4-25.7); Bilirubin, Total 0.6 mg/dL (0.2-1.2); Calc. Creatinine Clearance 0 mL/min (70-130); Calcium 8.5 mg/dL (7.8-10.44); Carbon Dioxide 22 mmol/L (23-31); Chloride 96 mmol/L (98-107); Globulin 3.7 g/dL (2.4-3.5); Glucose 120 mg/dL (80-115); Potassium 3.3 mmol/L (3.5-5.1); Protein, Total 7.2 g/dL (5.8-8.1); Sodium 135 mmol/L (136-145)
[2021-09-16] MEDS ORDERED: Cefepime 2 GM VIAL ONE (11:03)
[2021-09-16] MEDS ORDERED: Ibuprofen 800 MG TAB ONE (12:16)
[2021-09-16] MEDS ORDERED: Acetaminophen 500 MG TAB ONE (12:16)
[2021-09-16] MEDS ORDERED: Dexamethasone 10 MG/ML VIAL ONE (12:28)
[2021-09-16 13:29] LABS: SARS-CoV-2 NAA Rapid Test DETECTED (NotDetected)
[2021-09-16 13:37] LABS: Lactic Acid 1.3 mmol/L (0.5-2.2)
[2021-09-16] MEDS ORDERED: Senokot S 8.6-50 MG TAB PO PRN (14:54)
[2021-09-16] MEDS ORDERED: Ondansetron ODT 4 MG TAB PO PRN (14:54)
[2021-09-16] MEDS ORDERED: Calcium Carbonate 500 MG ChewTAB PO PRN (14:54)
[2021-09-16] MEDS ORDERED: Acetaminophen 325 MG TAB PO PRN (14:54)
[2021-09-16] MEDS ORDERED: Ondansetron PF 4 MG/2 ML Vial IVP PRN (14:54)
[2021-09-16] MEDS ORDERED: Benzonatate 100 MG CAP PO PRN (15:03)
[2021-09-16] MEDS ORDERED: Potassium Chloride 20 MEQ TAB PO SCH (15:30)
[2021-09-16] MEDS ORDERED: Pharmacy to Dose REMDESIVIR IVPB PRN (15:35)
[2021-09-16] MEDS ORDERED: Potassium Chloride 20 MEQ TAB ONE (16:07)
[2021-09-16] MEDS ORDERED: ceFAZolin 2 GM/Dextrose 50 ML 2 GM in Premix Bag 1 BAG IVPB SCH (17:00)
[2021-09-16] MEDS ORDERED: REMDESIVIR 200 MG in Sodium Chloride 0.9% 250 ML 210 ML IV SCH (18:00)
[2021-09-16] MEDS ORDERED: CEFAZOLIN 1 GM VIAL ONE (18:11)
[2021-09-16] MEDS ORDERED: Enoxaparin Sodium 40 MG/0.4 ML SYRINGE ONE (20:03)
[2021-09-16] MEDS: Enoxaparin Sodium 40 MG/0.4 ML SYRINGE SC SCH (20:05)
[2021-09-16] MEDS: ceFAZolin 2 GM/Dextrose 50 ML 2 GM in Premix Bag 1 BAG IVPB SCH (20:05)
[2021-09-16] MEDS: Gabapentin 300 MG CAP PO SCH (20:05)
[2021-09-16] MEDS: Albuterol 200 PUFF (6.7GM INHALER) INH SCH (21:10)
[2021-09-16] MEDS: Atorvastatin Calcium 10 MG TAB PO SCH (21:10)
[2021-09-16 22:34] VITALS: BMI 27.6
[2021-09-16] MEDS ORDERED: Melatonin 3 MG TAB PO SCH (22:34)
[2021-09-17] MEDS: ceFAZolin 2 GM/Dextrose 50 ML 2 GM in Premix Bag 1 BAG IVPB SCH ×2 (04:18→13:32)
[2021-09-17 05:37] LABS: Band 18 % (5-11); Lymphocytes 15 % (21-51); MDiff Complete? YES; Mean Corpuscular HGB CONC 32.5 g/dL (32.0-36.0); Mean Corpuscular Hemoglobin 29.1 pg (27.0-31.0); Mean Corpuscular Volume 89.6 fL (78.0-98.0); Mean Platelet Volume 8.2 fL (7.4-10.4); Monocytes 3 % (0-10); Neutrophil 64 % (42-75); Platelet Count 176 thou/uL (130-400); Platelet Morphology Comment Appears Adequate; RBC Distribution Width 14.1 % (11.5-14.5); Red Blood Cell (RBC) Count 4.11 mill/uL (4.70-6.10)
[2021-09-17 05:45] LABS: ALT (SGPT) Less than 7 U/L (8-55); AST (SGOT) 20 U/L (5-34); Albumin 3.2 g/dL (3.4-4.8); Anion Gap 17 mmol/L (10-20); BUN (Urea Nitrogen) 17 mg/dL (8.4-25.7); Bilirubin, Total 0.4 mg/dL (0.2-1.2); CRP (Inflammatory) 8.45 mg/dL (= or < 0.5); Calc. Creatinine Clearance 87 mL/min (70-130); Calcium 8.4 mg/dL (7.8-10.44); Carbon Dioxide 24 mmol/L (23-31); Chloride 102 mmol/L (98-107); Globulin 3.6 g/dL (2.4-3.5); Glucose 153 mg/dL (80-115); Potassium 3.7 mmol/L (3.5-5.1); Protein, Total 6.8 g/dL (5.8-8.1); Sodium 139 mmol/L (136-145)
[2021-09-17 05:51] LABS: Alkaline Phosphatase 85 U/L (40-110)
[2021-09-17] MEDS: Albuterol 200 PUFF (6.7GM INHALER) INH SCH ×3 (06:44→17:30)
[2021-09-17] MEDS: Enoxaparin Sodium 40 MG/0.4 ML SYRINGE SC SCH ×2 (09:14→21:00)
[2021-09-17] MEDS: Ascorbic Acid 500 mg Chewable Tablet PO SCH (09:14)
[2021-09-17] MEDS: Losartan 25 MG TAB PO SCH (09:15)
[2021-09-17] MEDS: Potassium Chloride 10 MEQ TAB PO SCH (09:15)
[2021-09-17] MEDS: Zinc Sulfate 220 MG CAP PO SCH (09:15)
[2021-09-17] MEDS: Aspirin 81 mg Enteric Coated Tablet PO SCH (09:15)
[2021-09-17] MEDS: Bisoprolol Fumarate 5 MG TAB PO SCH (09:15)
[2021-09-17] MEDS: Gabapentin 300 MG CAP PO SCH ×2 (09:16→21:00)
[2021-09-17] MEDS: Dexamethasone 4 mg/ml Vial SLOW IVP SCH (09:16)
[2021-09-17] MEDS: Furosemide 40 MG TAB PO SCH (09:26)
[2021-09-17] MEDS: Cephalexin 250 MG CAP PO SCH ×2 (17:30→23:54)
[2021-09-17] MEDS: REMDESIVIR 100 MG in Sodium Chloride 0.9% 250 ML 230 ML IV SCH (20:59)
[2021-09-17] MEDS: Atorvastatin Calcium 10 MG TAB PO SCH (21:00)
[2021-09-17] MEDS ORDERED: Melatonin 3 MG TAB PO SCH (22:38)
[2021-09-18] MEDS: Cephalexin 250 MG CAP PO SCH ×3 (06:16→17:28)
[2021-09-18] MEDS: Albuterol 200 PUFF (6.7GM INHALER) INH SCH ×3 (06:21→17:28)
[2021-09-18] MEDS: Gabapentin 300 MG CAP PO SCH ×2 (08:38→21:01)
[2021-09-18] MEDS: Bisoprolol Fumarate 5 MG TAB PO SCH (08:38)
[2021-09-18] MEDS: Aspirin 81 mg Enteric Coated Tablet PO SCH (08:38)
[2021-09-18] MEDS: Potassium Chloride 10 MEQ TAB PO SCH (08:38)
[2021-09-18] MEDS: Ascorbic Acid 500 mg Chewable Tablet PO SCH (08:39)
[2021-09-18] MEDS: Furosemide 40 MG TAB PO SCH (08:40)
[2021-09-18] MEDS: Zinc Sulfate 220 MG CAP PO SCH (08:40)
[2021-09-18] MEDS: Losartan 25 MG TAB PO SCH (08:40)
[2021-09-18] MEDS: Enoxaparin Sodium 40 MG/0.4 ML SYRINGE SC SCH ×2 (08:41→21:00)
[2021-09-18] MEDS: Dexamethasone 4 mg/ml Vial SLOW IVP SCH (08:41)
[2021-09-18] MEDS: Guaifenesin DM 100-10/5 ML UDCUP PO PRN ×2 (15:26→21:21)
[2021-09-18] MEDS: Atorvastatin Calcium 10 MG TAB PO SCH (21:00)
[2021-09-18] MEDS: REMDESIVIR 100 MG in Sodium Chloride 0.9% 250 ML 230 ML IV SCH (21:02)
[2021-09-19] MEDS: Cephalexin 250 MG CAP PO SCH ×5 (00:10→23:33)
[2021-09-19 05:10] LABS: Anion Gap 10 mmol/L (10-20); BUN (Urea Nitrogen) 23 mg/dL (8.4-25.7); Calc. Creatinine Clearance 95 mL/min (70-130); Calcium 8.1 mg/dL (7.8-10.44); Carbon Dioxide 32 mmol/L (23-31); Chloride 104 mmol/L (98-107); Glucose 110 mg/dL (80-115); Potassium 3.7 mmol/L (3.5-5.1); Sodium 142 mmol/L (136-145)
[2021-09-19] MEDS: Albuterol 200 PUFF (6.7GM INHALER) INH SCH ×3 (06:48→18:09)
[2021-09-19] MEDS: Furosemide 40 MG TAB PO SCH (07:59)
[2021-09-19] MEDS: Aspirin 81 mg Enteric Coated Tablet PO SCH (07:59)
[2021-09-19] MEDS: Ascorbic Acid 500 mg Chewable Tablet PO SCH (07:59)
[2021-09-19] MEDS: Potassium Chloride 10 MEQ TAB PO SCH (07:59)
[2021-09-19] MEDS: Bisoprolol Fumarate 5 MG TAB PO SCH (08:00)
[2021-09-19] MEDS: Gabapentin 300 MG CAP PO SCH ×2 (08:00→21:30)
[2021-09-19] MEDS: Enoxaparin Sodium 40 MG/0.4 ML SYRINGE SC SCH ×2 (08:00→21:30)
[2021-09-19] MEDS: Dexamethasone 4 mg/ml Vial SLOW IVP SCH (08:00)
[2021-09-19] MEDS: Losartan 25 MG TAB PO SCH (08:01)
[2021-09-19] MEDS: Zinc Sulfate 220 MG CAP PO SCH (08:01)
[2021-09-19] MEDS ORDERED: FLU VACC QS2021-22(65YR UP)/PF 240 MCG/0.7 ML SYRINGE IM ONE (09:00)
[2021-09-19] MEDS: Atorvastatin Calcium 10 MG TAB PO SCH (21:30)
[2021-09-19] MEDS: REMDESIVIR 100 MG in Sodium Chloride 0.9% 250 ML 230 ML IV SCH (22:32)
[2021-09-20] MEDS: Cephalexin 250 MG CAP PO SCH ×3 (05:14→18:26)
[2021-09-20] MEDS: Furosemide 40 MG TAB PO SCH (05:14)
[2021-09-20] MEDS: Albuterol 200 PUFF (6.7GM INHALER) INH SCH ×3 (05:15→18:27)
[2021-09-20] MEDS: Enoxaparin Sodium 40 MG/0.4 ML SYRINGE SC SCH (10:08)
[2021-09-20] MEDS: Ascorbic Acid 500 mg Chewable Tablet PO SCH (10:08)
[2021-09-20] MEDS: Potassium Chloride 10 MEQ TAB PO SCH (10:08)
[2021-09-20] MEDS: Aspirin 81 mg Enteric Coated Tablet PO SCH (10:09)
[2021-09-20] MEDS: Dexamethasone 4 mg/ml Vial SLOW IVP SCH (10:09)
[2021-09-20] MEDS: Losartan 25 MG TAB PO SCH (10:09)
[2021-09-20] MEDS: Gabapentin 300 MG CAP PO SCH (10:09)
[2021-09-20] MEDS: Zinc Sulfate 220 MG CAP PO SCH (10:09)
[2021-09-20] MEDS: Bisoprolol Fumarate 5 MG TAB PO SCH (10:09)
[2021-09-20 12:27] VITALS: TEMP 97.7
[2021-09-20] MEDS ORDERED: REMDESIVIR 100 MG in Sodium Chloride 0.9% 250 ML 230 ML IV SCH (16:00)
[2021-09-20 16:24] VITALS: BP 124/66
== END 2021-09-20 19:26 | disposition home or self-care (01) | DRG 871 ==
LOC: ERS 08:28 → ERHOLD 11:59 → 2SW 21:41
PROVIDERS: ADMIT Internal Medicine; ATTEND Hospitalist
PROC: XW033E5 Introduction of Remdesivir Anti-infective into Peripheral Vein, Percutaneous Approach, New Technology Group 5 (ICD-10-PCS; principal; 2021-09-16)
PROC: 8E0ZXY6 Isolation (ICD-10-PCS; 2021-09-16)
DX: A41.89 Other specified sepsis (principal); U07.1 COVID-19; J12.82 Pneumonia due to coronavirus disease 2019; T81.49XA Infection following a procedure, other surgical site, initial encounter; E78.5 Hyperlipidemia, unspecified; Z96.649 Presence of unspecified artificial hip joint; I25.10 Atherosclerotic heart disease of native coronary artery without angina pectoris; K21.9 Gastro-esophageal reflux disease without esophagitis; G62.9 Polyneuropathy, unspecified; I10 Essential (primary) hypertension; I48.0 Paroxysmal atrial fibrillation; B95.61 Methicillin susceptible Staphylococcus aureus infection as the cause of diseases classified elsewhere; Y83.8 Other surgical procedures as the cause of abnormal reaction of the patient, or of later complication, without mention of misadventure at the time of the procedure; E87.6 Hypokalemia; Z96.641 Presence of right artificial hip joint; Z28.21 Immunization not carried out because of patient refusal; I25.2 Old myocardial infarction; Z90.49 Acquired absence of other specified parts of digestive tract; Z95.1 Presence of aortocoronary bypass graft; Z87.891 Personal history of nicotine dependence; Z83.6 Family history of other diseases of the respiratory system; Z83.71 Family history of colonic polyps; Z79.899 Other long term (current) drug therapy; Z88.6 Allergy status to analgesic agent; Z88.5 Allergy status to narcotic agent; Z79.82 Long term (current) use of aspirin
CPT/HCPCS: 36415; 71045; 71275; 80048; 80053; 83605; 85007; 85025; 85027; 85379; 86140; 87040; 96365; 96375; J0248; J0690; J0692; J1100; J1650; J7050; U0002

== ENCOUNTER 2021-09-22 12:20 | Inpatient (IN) | payer MEDICARE ==
[2021-09-22 13:31] LABS: #Basophils 0.1 thou/uL (0.0-0.2); #Eosinphils 0.1 thou/uL (0.0-0.7); #Monocytes 0.6 thou/uL (0.11-0.59); #Neutrophils 5.2 thou/uL (1.40-6.50); %Basophils 1.4 % (0.0-1.0); %Eosinophils 0.8 % (0.0-10.0); %Lymphocytes 14.2 % (21.0-51.0); %Monocytes 7.9 % (0.0-10.0); %Neutrophils 75.8 % (42.0-75.0); Hemoglobin 12.4 g/dL (14.0-18.0); Mean Corpuscular HGB CONC 32.4 g/dL (32.0-36.0); Mean Corpuscular Hemoglobin 28.5 pg (27.0-31.0); Mean Corpuscular Volume 88.1 fL (78.0-98.0); Mean Platelet Volume 7.8 fL (7.4-10.4); Platelet Count 259 thou/uL (130-400); RBC Distribution Width 14.9 % (11.5-14.5); Red Blood Cell (RBC) Count 4.36 mill/uL (4.70-6.10); White Blood Cell (WBC) Count 6.9 thou/uL (4.8-10.8)
[2021-09-22 13:55] LABS: Bilirubin Negative (Negative); Blood, Urine Negative (Negative); Clarity Clear (Clear); Glucose, Urine (Dipstick) Normal (Negative); Ketone, Urine Negative (Negative); Leukocyte Negative Leu/uL (Negative); Nitrite Negative (Negative); Protein, Urine (Dipstick) 20 mg/dL (Neg-Trace); Specific Gravity, Urine 1.046 (1.002-1.036)
[2021-09-22 14:00] LABS: CK (CPK) 27 U/L (30-200); CRP (Inflammatory) 8.89 mg/dL (= or < 0.5); Magnesium 1.7 mg/dL (1.6-2.6)
[2021-09-22 14:01] LABS: ALT (SGPT) 17 U/L (8-55); AST (SGOT) 22 U/L (5-34); Albumin 3.2 g/dL (3.4-4.8); Alkaline Phosphatase 90 U/L (40-110); Anion Gap 16 mmol/L (10-20); BUN (Urea Nitrogen) 28 mg/dL (8.4-25.7); Bilirubin, Total 0.7 mg/dL (0.2-1.2); Calc. Creatinine Clearance 0 mL/min (70-130); Calcium 8.5 mg/dL (7.8-10.44); Carbon Dioxide 25 mmol/L (23-31); Chloride 100 mmol/L (98-107); Globulin 3.7 g/dL (2.4-3.5); Glucose 113 mg/dL (80-115); Potassium 3.6 mmol/L (3.5-5.1); Protein, Total 6.9 g/dL (5.8-8.1); Sodium 137 mmol/L (136-145)
[2021-09-22] MEDS ORDERED: Dexamethasone 4 mg/ml Vial ONE (15:04)
[2021-09-22] MEDS ORDERED: Enoxaparin Sodium 80 MG/0.8 ML SYRINGE ONE (15:04)
[2021-09-22 15:39] LABS: D-Dimer Test 4.51 *mcg/mL (0.27-0.43)
[2021-09-22 16:00] LABS: PTT 20.7 sec (22.9-36.1)
[2021-09-22] MEDS ORDERED: HYDROcodone/Acetaminophen 5/325 mg Tablet PO PRN (16:10)
[2021-09-22] MEDS ORDERED: Acetaminophen 325 MG TAB PO PRN (16:11)
[2021-09-22] MEDS ORDERED: Ondansetron PF 4 MG/2 ML Vial IVP PRN (16:11)
[2021-09-22] MEDS ORDERED: Cephalexin 250 MG CAP ONE (18:13)
[2021-09-22] MEDS: Cephalexin 250 MG CAP PO SCH (18:17)
[2021-09-22 18:39] LABS: SARS-CoV-2 PCR by NAA DETECTED (NotDetected)
[2021-09-22] MEDS ORDERED: Enoxaparin Sodium 80 MG/0.8 ML SYRINGE SC SCH (21:00)
[2021-09-22] MEDS: Atorvastatin Calcium 10 MG TAB PO SCH (22:29)
[2021-09-22] MEDS: traZODone HCl 50 MG TAB PO SCH (22:29)
[2021-09-22] MEDS: Gabapentin 300 MG CAP PO SCH (22:29)
[2021-09-22] MEDS: Cholecalciferol 1,000 UNITS (25 MCG) TAB PO SCH (22:29)
[2021-09-22 23:10] VITALS: BMI 27.1
[2021-09-23] MEDS: Cephalexin 250 MG CAP PO SCH ×4 (00:02→18:20)
[2021-09-23] MEDS: Enoxaparin Sodium 80 MG/0.8 ML SYRINGE SC SCH ×2 (03:23→14:27)
[2021-09-23 05:41] LABS: #Lymphocytes 0.6 thou/uL (1.20-3.40); #Monocytes 0.3 thou/uL (0.11-0.59); #Neutrophils 5.8 thou/uL (1.40-6.50); %Basophils 0.5 % (0.0-1.0); %Eosinophils 0.2 % (0.0-10.0); %Lymphocytes 8.2 % (21.0-51.0); %Monocytes 4.6 % (0.0-10.0); %Neutrophils 86.4 % (42.0-75.0); Hemoglobin 12.7 g/dL (14.0-18.0); Mean Corpuscular HGB CONC 32.4 g/dL (32.0-36.0); Mean Corpuscular Hemoglobin 28.5 pg (27.0-31.0); Mean Corpuscular Volume 87.8 fL (78.0-98.0); Mean Platelet Volume 7.7 fL (7.4-10.4); Platelet Count 316 thou/uL (130-400); RBC Distribution Width 14.8 % (11.5-14.5); Red Blood Cell (RBC) Count 4.47 mill/uL (4.70-6.10); White Blood Cell (WBC) Count 6.7 thou/uL (4.8-10.8)
[2021-09-23 06:00] LABS: Anion Gap 14 mmol/L (10-20); BUN (Urea Nitrogen) 27 mg/dL (8.4-25.7); Calc. Creatinine Clearance 104 mL/min (70-130); Calcium 8.8 mg/dL (7.8-10.44); Carbon Dioxide 28 mmol/L (23-31); Chloride 101 mmol/L (98-107); Glucose 187 mg/dL (80-115); Potassium 3.5 mmol/L (3.5-5.1); Sodium 139 mmol/L (136-145)
[2021-09-23] MEDS: Ascorbic Acid 500 mg Chewable Tablet PO SCH (08:44)
[2021-09-23] MEDS: Zinc Sulfate 220 MG CAP PO SCH (08:44)
[2021-09-23] MEDS: Bisoprolol Fumarate 5 MG TAB PO SCH (08:45)
[2021-09-23] MEDS: Losartan 25 MG TAB PO SCH (08:45)
[2021-09-23] MEDS: Aspirin Chewable 81 MG TAB PO SCH (08:45)
[2021-09-23] MEDS: Potassium Chloride 10 MEQ TAB PO SCH (08:46)
[2021-09-23] MEDS: Furosemide 40 MG TAB PO SCH (08:46)
[2021-09-23] MEDS: Gabapentin 300 MG CAP PO SCH ×3 (08:46→20:19)
[2021-09-23] MEDS: Dexamethasone 10 MG/ML VIAL SLOW IVP SCH (08:49)
[2021-09-23] MEDS: traZODone HCl 50 MG TAB PO SCH (20:19)
[2021-09-23] MEDS: Cholecalciferol 1,000 UNITS (25 MCG) TAB PO SCH (20:19)
[2021-09-23] MEDS: Atorvastatin Calcium 10 MG TAB PO SCH (20:19)
[2021-09-24] MEDS: Cephalexin 250 MG CAP PO SCH ×3 (00:06→12:57)
[2021-09-24 05:20] LABS: #Lymphocytes 1.1 thou/uL (1.20-3.40); #Monocytes 0.7 thou/uL (0.11-0.59); #Neutrophils 10.1 thou/uL (1.40-6.50); %Basophils 0.1 % (0.0-1.0); %Eosinophils 0.3 % (0.0-10.0); %Lymphocytes 9.1 % (21.0-51.0); %Monocytes 5.8 % (0.0-10.0); %Neutrophils 84.7 % (42.0-75.0); Hemoglobin 11.8 g/dL (14.0-18.0); Mean Corpuscular HGB CONC 32.1 g/dL (32.0-36.0); Mean Corpuscular Hemoglobin 28.7 pg (27.0-31.0); Mean Corpuscular Volume 89.4 fL (78.0-98.0); Mean Platelet Volume 7.8 fL (7.4-10.4); Platelet Count 331 thou/uL (130-400); RBC Distribution Width 14.8 % (11.5-14.5); Red Blood Cell (RBC) Count 4.13 mill/uL (4.70-6.10); White Blood Cell (WBC) Count 11.9 thou/uL (4.8-10.8)
[2021-09-24 05:42] LABS: Anion Gap 15 mmol/L (10-20); BUN (Urea Nitrogen) 31 mg/dL (8.4-25.7); Calc. Creatinine Clearance 95 mL/min (70-130); Calcium 8.6 mg/dL (7.8-10.44); Carbon Dioxide 26 mmol/L (23-31); Chloride 101 mmol/L (98-107); Glucose 143 mg/dL (80-115); Potassium 3.9 mmol/L (3.5-5.1); Sodium 138 mmol/L (136-145)
[2021-09-24] MEDS ORDERED: Enoxaparin Sodium 80 MG/0.8 ML SYRINGE SC SCH (06:00)
[2021-09-24] MEDS: Bisoprolol Fumarate 5 MG TAB PO SCH (08:33)
[2021-09-24] MEDS: Dexamethasone 10 MG/ML VIAL SLOW IVP SCH ×2 (08:33→08:35)
[2021-09-24] MEDS: Ascorbic Acid 500 mg Chewable Tablet PO SCH (08:33)
[2021-09-24] MEDS: Potassium Chloride 10 MEQ TAB PO SCH (08:34)
[2021-09-24] MEDS: Furosemide 40 MG TAB PO SCH (08:34)
[2021-09-24] MEDS: Zinc Sulfate 220 MG CAP PO SCH (08:34)
[2021-09-24] MEDS: Aspirin Chewable 81 MG TAB PO SCH (08:34)
[2021-09-24] MEDS: Losartan 25 MG TAB PO SCH (08:34)
[2021-09-24] MEDS: Gabapentin 300 MG CAP PO SCH ×2 (08:35→17:37)
[2021-09-24] MEDS ORDERED: Apixaban 5 MG TAB PO SCH (09:00)
[2021-09-24 16:10] VITALS: BP 113/60; TEMP 97.8
[2021-09-25] MEDS ORDERED: Enoxaparin Sodium 80 MG/0.8 ML SYRINGE SC SCH ×2 (09:00)
[2021-10-01] MEDS ORDERED: Apixaban 5 MG TAB PO SCH (21:00)
== END 2021-09-24 18:05 | disposition home or self-care (01) | DRG 177 ==
LOC: ERS 12:20 → ERHOLD 14:56 → 2SW 22:50
PROVIDERS: ADMIT Internal Medicine; ATTEND Hospitalist
PROC: 8E0ZXY6 Isolation (ICD-10-PCS; principal; 2021-09-22)
PROC: 3E0333Z Introduction of Anti-inflammatory into Peripheral Vein, Percutaneous Approach (ICD-10-PCS; 2021-09-23)
DX: U07.1 COVID-19 (principal); J12.82 Pneumonia due to coronavirus disease 2019; J96.01 Acute respiratory failure with hypoxia; I26.99 Other pulmonary embolism without acute cor pulmonale; T81.49XA Infection following a procedure, other surgical site, initial encounter; I25.10 Atherosclerotic heart disease of native coronary artery without angina pectoris; I48.91 Unspecified atrial fibrillation; E78.5 Hyperlipidemia, unspecified; K21.9 Gastro-esophageal reflux disease without esophagitis; I10 Essential (primary) hypertension; G62.9 Polyneuropathy, unspecified; Z96.649 Presence of unspecified artificial hip joint; Z96.642 Presence of left artificial hip joint; Y83.8 Other surgical procedures as the cause of abnormal reaction of the patient, or of later complication, without mention of misadventure at the time of the procedure; I25.2 Old myocardial infarction; Z88.5 Allergy status to narcotic agent; Z95.1 Presence of aortocoronary bypass graft; Z90.49 Acquired absence of other specified parts of digestive tract; Z79.82 Long term (current) use of aspirin; Z79.899 Other long term (current) drug therapy
CPT/HCPCS: 36415; 71275; 80048; 80053; 81003; 82550; 83605; 83735; 83880; 84484; 85025; 85379; 85610; 85730; 86140; 87040; 87086; 93005; 94760; 96372; 96374; J1100; J1650; U0003; U0005

== ENCOUNTER 2022-05-28 17:29 | Emergency (ER) | payer MEDICARE ==
[2022-05-28] MEDS ORDERED: Dicyclomine 20 MG/2 ML VIAL ONE (17:57)
[2022-05-28 18:43] LABS: ALT (SGPT) 17 U/L (8-55); AST (SGOT) 25 U/L (5-34); Albumin 3.9 g/dL (3.4-4.8); Alkaline Phosphatase 128 U/L (40-110); Anion Gap 14 mmol/L (10-20); BUN (Urea Nitrogen) 21 mg/dL (8.4-25.7); Bilirubin, Total 0.8 mg/dL (0.2-1.2); Calc. Creatinine Clearance 0 mL/min (70-130); Carbon Dioxide 23 mmol/L (23-31); Chloride 108 mmol/L (98-107); Estimated GFR 80; Globulin 3.2 g/dL (2.4-3.5); Glucose 99 mg/dL (80-115); Lipase 14 U/L (8-78); Potassium 4.8 mmol/L (3.5-5.1); Protein, Total 7.1 g/dL (5.8-8.1); Sodium 140 mmol/L (136-145)
[2022-05-28 18:53] LABS: #Lymphocytes 1.3 thou/uL (1.20-3.40); #Monocytes 0.8 thou/uL (0.11-0.59); #Neutrophils 10.2 thou/uL (1.40-6.50); %Basophils 0.1 % (0.0-1.0); %Eosinophils 0.3 % (0.0-10.0); %Lymphocytes 10.7 % (21.0-51.0); %Monocytes 6.6 % (0.0-10.0); %Neutrophils 82.3 % (42.0-75.0); Hemoglobin 16.6 g/dL (14.0-18.0); Mean Corpuscular HGB CONC 31.1 g/dL (32.0-36.0); Mean Corpuscular Volume 93.2 fL (78.0-98.0); Mean Platelet Volume 7.9 fL (7.4-10.4); Platelet Count 206 thou/uL (130-400); RBC Distribution Width 15.4 % (11.5-14.5); Red Blood Cell (RBC) Count 5.72 mill/uL (4.70-6.10); White Blood Cell (WBC) Count 12.3 thou/uL (4.8-10.8)
[2022-05-28] MEDS ORDERED: Ciprofloxacin 500 MG TAB ONE (19:55)
[2022-05-28] MEDS ORDERED: metroNIDAZOLE 250 MG TAB ONE (19:55)
== END 2022-05-28 19:59 | disposition home or self-care (01) ==
LOC: ERS 17:29
DX: K52.9 Noninfective gastroenteritis and colitis, unspecified (principal); E78.5 Hyperlipidemia, unspecified; I10 Essential (primary) hypertension; Z87.891 Personal history of nicotine dependence; Z79.82 Long term (current) use of aspirin; Z79.01 Long term (current) use of anticoagulants; Z79.899 Other long term (current) drug therapy
CPT/HCPCS: 36415; 74176; 80053; 83605; 83690; 85025; 96372

== ENCOUNTER 2022-07-09 02:08 | Emergency (ER) | payer MEDICARE ==
[2022-07-09] MEDS ORDERED: HYDROcodone/Acetaminophen 5/325 mg Tablet ONE (03:38)
[2022-07-09] MEDS ORDERED: Hydrocodone-Acetamin 15 ML UDCUP ONE (03:52)
[2022-07-09 04:37] LABS: SARS-CoV-2 NAA Rapid Test Not Detected (NotDetected)
== END 2022-07-09 04:55 | disposition home or self-care (01) ==
LOC: ERS 02:08
DX: J10.1 Influenza due to other identified influenza virus with other respiratory manifestations (principal); J18.9 Pneumonia, unspecified organism; E78.5 Hyperlipidemia, unspecified; I10 Essential (primary) hypertension; Z87.891 Personal history of nicotine dependence; Z20.822 Contact with and (suspected) exposure to COVID-19; Z79.899 Other long term (current) drug therapy
CPT/HCPCS: 0240U; 71045; 93005; 99284

== ENCOUNTER 2022-08-10 13:22 | Outpatient (CLI) | payer MEDICARE ==
[2022-08-10 14:29] LABS: Hemoglobin 15.8 g/dL (13.5-17.5); Mean Corpuscular HGB CONC 32.6 g/dL (32.0-36.0); Mean Corpuscular Hemoglobin 30.1 pg (27.0-33.0); Mean Corpuscular Volume 92.2 fl (81.2-95.1); Platelet Count 225 10x3/uL (150-450); RBC Distribution Width 14.7 % (11.5-14.5); Red Blood Cell (RBC) Count 5.25 10x6/uL (4.32-5.72); White Blood Cell (WBC) Count 7.5 10x3/uL (3.5-10.5)
[2022-08-10 15:01] LABS: Anion Gap 17 mmol/L (10-20); BUN (Urea Nitrogen) 13 mg/dL (8.4-25.7); Calc. Creatinine Clearance 0 mL/min (70-130); Calcium 9.1 mg/dL (7.8-10.44); Carbon Dioxide 23 mmol/L (23-31); Chloride 102 mmol/L (98-107); Estimated GFR 86; Glucose 95 mg/dL (80-115); Potassium 4.1 mmol/L (3.5-5.1); Sodium 138 mmol/L (136-145)
== END 2022-08-10 13:23 | disposition home or self-care (01) ==
LOC: LABBT 13:22
PROVIDERS: ATTEND Student in an Organized Health Care Education/Training Program
DX: Z01.818 Encounter for other preprocedural examination (principal); J34.2 Deviated nasal septum; J34.3 Hypertrophy of nasal turbinates
CPT/HCPCS: 80048; 85027; 93005; 93010

== ENCOUNTER 2022-08-18 07:22 | Day surgery (SDC) | payer MEDICARE ==
[2022-08-13 10:42] VITALS: BMI 28.8
[2022-08-18] MEDS ORDERED: Oxymetazoline HCl 0.05% (30 ML BOT) ONE ×2 (07:46→09:46)
[2022-08-18] MEDS ORDERED: EPINEPHrine 1 MG/ML AMP ONE (09:46)
[2022-08-18] MEDS ORDERED: Bacitracin Zinc Ointment 30 gm TUBE ONE (09:46)
[2022-08-18] MEDS ORDERED: Lidocaine 1% (PF) 30 ML VIAL ONE (09:46)
[2022-08-18] MEDS ORDERED: Fentanyl 250 MCG/5 ML VIAL ONE (09:50)
[2022-08-18] MEDS ORDERED: NEOSTIGMINE 3 MG/3 ML SYR 3 MG/3 ML SYRINGE ONE (09:59)
[2022-08-18] MEDS ORDERED: PHENYLEPHRINE-NS 100 MCG/ML 10 ML SYRINGE ONE (09:59)
[2022-08-18] MEDS ORDERED: PROPOFOL 200 MG/20 ML VIAL ONE (09:59)
[2022-08-18] MEDS ORDERED: Dexamethasone 20 MG/5 ML VIAL ONE (09:59)
[2022-08-18] MEDS ORDERED: Glycopyrrolate 0.2 MG/ML 5 ML SYRINGE ONE (09:59)
[2022-08-18] MEDS ORDERED: Ondansetron PF 4 MG/2 ML Vial ONE ×2 (09:59→13:09)
[2022-08-18] MEDS ORDERED: Rocuronium Bromide 10 MG/ML (10ML VIAL) ONE (09:59)
[2022-08-18] MEDS ORDERED: Fentanyl 100 MCG/2 ML VIAL ONE (11:59)
[2022-08-18] MEDS ORDERED: Promethazine HCl 25 MG/ML VIAL ONE (13:33)
== END 2022-08-18 14:16 | disposition home or self-care (01) ==
LOC: SDC 07:22
PROVIDERS: ATTEND Student in an Organized Health Care Education/Training Program
PROC: 09SM0ZZ Reposition Nasal Septum, Open Approach (ICD-10-PCS; principal; 2022-08-18)
PROC: 09TL0ZZ Resection of Nasal Turbinate, Open Approach (ICD-10-PCS; 2022-08-18)
PROC: 09QK0ZZ Repair Nasal Mucosa and Soft Tissue, Open Approach (ICD-10-PCS; 2022-08-18)
DX: J34.89 Other specified disorders of nose and nasal sinuses (principal); J34.2 Deviated nasal septum; J34.3 Hypertrophy of nasal turbinates; M19.90 Unspecified osteoarthritis, unspecified site; F17.290 Nicotine dependence, other tobacco product, uncomplicated; Z79.899 Other long term (current) drug therapy; Z88.5 Allergy status to narcotic agent; Z95.1 Presence of aortocoronary bypass graft
CPT/HCPCS: 30140; 30468; 30520; C1889; J0171; J1100; J2001; J2405; J2550; J2704; J3010

== ENCOUNTER 2023-03-16 20:52 | Inpatient (IN) | payer MEDICARE ==
[~2023-03-16 20:52] MED LIST changes: -ISOVUE-370 76%-LOCM 1 ML ONE; +Iopamidol-370 76% 500 ML MDV (1 ML CHARGE) ONE
[2023-03-16 21:26] LABS: #Eosinphils 0.1 thou/uL (0.0-0.7); #Monocytes 1.1 thou/uL (0.11-0.59); #Neutrophils 7.9 thou/uL (1.40-6.50); %Basophils 0.3 % (0.0-1.0); %Eosinophils 0.8 % (0.0-10.0); %Monocytes 10.9 % (0.0-10.0); %Neutrophils 76.7 % (42.0-75.0); Hemoglobin 16.3 g/dL (14.0-18.0); Mean Corpuscular HGB CONC 33.3 g/dL (32.0-36.0); Mean Corpuscular Hemoglobin 30.5 pg (27.0-31.0); Mean Corpuscular Volume 91.4 fl (78.0-98.0); Mean Platelet Volume 9.6 fL (7.4-10.4); Platelet Count 173 10x3/uL (130-400); RBC Distribution Width 14.6 % (11.5-14.5); Red Blood Cell (RBC) Count 5.35 mill/uL (4.70-6.10); White Blood Cell (WBC) Count 10.3 10x3/uL (4.8-10.8)
[2023-03-16] MEDS ORDERED: Acetaminophen 500 MG TAB ONE (21:29)
[2023-03-16 21:53] LABS: ALT (SGPT) 17 U/L (8-55); AST (SGOT) 19 U/L (5-34); Albumin 3.9 g/dL (3.4-4.8); Alkaline Phosphatase 102 U/L (40-110); Anion Gap 14 mmol/L (10-20); BUN (Urea Nitrogen) 19 mg/dL (8.4-25.7); Bilirubin, Total 0.5 mg/dL (0.2-1.2); Calc. Creatinine Clearance 0 mL/min (70-130); Calcium 9.2 mg/dL (7.8-10.44); Carbon Dioxide 25 mmol/L (23-31); Chloride 103 mmol/L (98-107); Estimated GFR 75; Globulin 3.5 g/dL (2.4-3.5); Glucose 137 mg/dL (80-115); Potassium 4.6 mmol/L (3.5-5.1); Protein, Total 7.4 g/dL (5.8-8.1); Sodium 137 mmol/L (136-145)
[2023-03-16 21:55] LABS: PTT 33.5 sec (22.9-36.1); Prothrombin Time 13.4 sec (12.0-14.7)
[2023-03-16 21:56] LABS: D-Dimer Test 0.78 *mcg/mL (0.27-0.43)
[2023-03-16 23:21] LABS: SARS-CoV-2 NAA Rapid Test Not Detected (NotDetected)
[2023-03-16] MEDS ORDERED: Ondansetron PF 4 MG/2 ML Vial IVP PRN (23:58)
[2023-03-16] MEDS ORDERED: Acetaminophen 325 MG TAB PO PRN (23:58)
[2023-03-17] MEDS ORDERED: Ipratropium/Albuterol 3 ML NEB EZPAP PRN (00:01)
[2023-03-17] MEDS ORDERED: methylPREDNISolone Sod Succ 40 MG VIAL IVP SCH (00:15)
[2023-03-17 00:52] VITALS: BMI 28.3
[2023-03-17 08:02] LABS: #Monocytes 0.1 thou/uL (0.11-0.59); #Neutrophils 6.2 thou/uL (1.40-6.50); %Basophils 0.1 % (0.0-1.0); %Eosinophils 0.1 % (0.0-10.0); %Lymphocytes 7.9 % (21.0-51.0); %Monocytes 1.7 % (0.0-10.0); %Neutrophils 89.6 % (42.0-75.0); Mean Corpuscular Hemoglobin 30.1 pg (27.0-31.0); Mean Corpuscular Volume 91.2 fl (78.0-98.0); Mean Platelet Volume 9.7 fL (7.4-10.4); Platelet Count 150 10x3/uL (130-400); RBC Distribution Width 14.6 % (11.5-14.5); Red Blood Cell (RBC) Count 5.32 mill/uL (4.70-6.10); White Blood Cell (WBC) Count 6.9 10x3/uL (4.8-10.8)
[2023-03-17 08:24] LABS: Anion Gap 14 mmol/L (10-20); BUN (Urea Nitrogen) 20 mg/dL (8.4-25.7); Calc. Creatinine Clearance 93 mL/min (70-130); Calcium 8.8 mg/dL (7.8-10.44); Carbon Dioxide 23 mmol/L (23-31); Chloride 105 mmol/L (98-107); Estimated GFR 92; Glucose 191 mg/dL (80-115); Potassium 4.5 mmol/L (3.5-5.1); Sodium 137 mmol/L (136-145)
[2023-03-17 16:04] VITALS: BP 134/89; TEMP 98.2
== END 2023-03-17 16:19 | disposition home or self-care (01) | DRG 189 ==
LOC: ERS 20:52 → T4-A 23:51 → OBSVTOIN 03-17 11:20
PROVIDERS: ADMIT Internal Medicine; ATTEND Internal Medicine
DX: J96.01 Acute respiratory failure with hypoxia (principal); Z20.822 Contact with and (suspected) exposure to COVID-19; I25.10 Atherosclerotic heart disease of native coronary artery without angina pectoris; I10 Essential (primary) hypertension; E78.5 Hyperlipidemia, unspecified; Z88.6 Allergy status to analgesic agent; Z79.899 Other long term (current) drug therapy; Z95.1 Presence of aortocoronary bypass graft; Z90.89 Acquired absence of other organs; Z87.891 Personal history of nicotine dependence; Z96.642 Presence of left artificial hip joint; J20.8 Acute bronchitis due to other specified organisms; I25.2 Old myocardial infarction
CPT/HCPCS: 36415; 71045; 71275; 80048; 80053; 80061; 83605; 83880; 84484; 85025; 85379; 85610; 85730; 87040; 87633; 93005; 94760; 96372; 96374; G0378; J1650; J2920; Q9967

== ENCOUNTER 2023-03-20 19:24 | Inpatient (IN) | payer MEDICARE ==
[2023-03-20] MEDS ORDERED: Acetaminophen 500 MG TAB ONE (20:05)
[2023-03-20] MEDS ORDERED: Aspirin Chewable 81 MG TAB ONE (20:05)
[2023-03-20 20:17] LABS: #Eosinphils 0.1 thou/uL (0.0-0.7); #Monocytes 0.7 thou/uL (0.11-0.59); %Basophils 0.3 % (0.0-1.0); %Eosinophils 0.6 % (0.0-10.0); %Monocytes 7.1 % (0.0-10.0); %Neutrophils 83.6 % (42.0-75.0); Hemoglobin 15.7 g/dL (14.0-18.0); Mean Corpuscular HGB CONC 33.5 g/dL (32.0-36.0); Mean Corpuscular Hemoglobin 30.4 pg (27.0-31.0); Mean Corpuscular Volume 90.7 fl (78.0-98.0); Mean Platelet Volume 9.7 fL (7.4-10.4); Platelet Count 195 10x3/uL (130-400); RBC Distribution Width 14.4 % (11.5-14.5); Red Blood Cell (RBC) Count 5.16 mill/uL (4.70-6.10); White Blood Cell (WBC) Count 9.5 10x3/uL (4.8-10.8)
[2023-03-20 21:10] LABS: SARS-CoV-2 NAA Rapid Test Not Detected (NotDetected)
[2023-03-20 23:16] LABS: ALT (SGPT) 13 U/L (8-55); AST (SGOT) 18 U/L (5-34); Albumin 3.4 g/dL (3.4-4.8); Alkaline Phosphatase 80 U/L (40-110); Anion Gap 16 mmol/L (10-20); BUN (Urea Nitrogen) 16 mg/dL (8.4-25.7); Bilirubin, Total 0.6 mg/dL (0.2-1.2); Calc. Creatinine Clearance 0 mL/min (70-130); Calcium 8.6 mg/dL (7.8-10.44); Carbon Dioxide 23 mmol/L (23-31); Chloride 103 mmol/L (98-107); Estimated GFR 94; Globulin 3.1 g/dL (2.4-3.5); Glucose 117 mg/dL (80-115); Lipase 26 U/L (8-78); Potassium 4.1 mmol/L (3.5-5.1); Protein, Total 6.5 g/dL (5.8-8.1); Sodium 138 mmol/L (136-145)
[2023-03-21 00:18] LABS: Troponin I Less than 0.010 ng/mL (< 0.028)
[2023-03-21 01:16] VITALS: BMI 27.8
[2023-03-21] MEDS ORDERED: Ondansetron ODT 4 MG TAB PO PRN (02:27)
[2023-03-21] MEDS ORDERED: Senokot S 8.6-50 MG TAB PO PRN (02:27)
[2023-03-21] MEDS ORDERED: Acetaminophen 325 MG TAB PO PRN (02:27)
[2023-03-21] MEDS ORDERED: Calcium Carbonate 500 MG ChewTAB PO PRN (02:27)
[2023-03-21] MEDS ORDERED: Ipratropium/Albuterol 3 ML NEB NEB PRN (02:31)
[2023-03-21 03:35] LABS: Troponin I Less than 0.010 ng/mL (< 0.028)
[2023-03-21] MEDS ORDERED: Lorazepam 0.5 MG TAB PO SCH ×2 (06:15→06:30)
[2023-03-21] MEDS: Bisoprolol Fumarate 5 MG TAB PO SCH (08:43)
[2023-03-21] MEDS: FLUoxetine HCl 10 MG CAP PO SCH (08:43)
[2023-03-21] MEDS: Losartan 25 MG TAB PO SCH (08:44)
[2023-03-21] MEDS: Gabapentin 300 MG CAP PO SCH ×2 (08:44→21:24)
[2023-03-21] MEDS ORDERED: Dexamethasone 4 mg/ml Vial SLOW IVP SCH (09:00)
[2023-03-21] MEDS ORDERED: Famotidine 20 MG TAB PO SCH (09:00)
[2023-03-21 09:24] LABS: #Eosinphils 0.1 thou/uL (0.0-0.7); #Monocytes 0.4 thou/uL (0.11-0.59); #Neutrophils 6.3 thou/uL (1.40-6.50); %Basophils 0.1 % (0.0-1.0); %Eosinophils 0.7 % (0.0-10.0); %Lymphocytes 6.2 % (21.0-51.0); %Monocytes 6.1 % (0.0-10.0); %Neutrophils 86.6 % (42.0-75.0); Mean Corpuscular HGB CONC 33.2 g/dL (32.0-36.0); Mean Corpuscular Hemoglobin 30.4 pg (27.0-31.0); Mean Corpuscular Volume 91.7 fl (78.0-98.0); Mean Platelet Volume 9.5 fL (7.4-10.4); Platelet Count 202 10x3/uL (130-400); RBC Distribution Width 14.4 % (11.5-14.5); White Blood Cell (WBC) Count 7.3 10x3/uL (4.8-10.8)
[2023-03-21 09:44] LABS: Anion Gap 14 mmol/L (10-20); BUN (Urea Nitrogen) 15 mg/dL (8.4-25.7); Calc. Creatinine Clearance 101 mL/min (70-130); Calcium 8.6 mg/dL (7.8-10.44); Carbon Dioxide 27 mmol/L (23-31); Chloride 102 mmol/L (98-107); Estimated GFR 96; Glucose 159 mg/dL (80-115); Potassium 4.4 mmol/L (3.5-5.1); Sodium 139 mmol/L (136-145)
[2023-03-21] MEDS ORDERED: Guaifenesin DM 100-10/5 ML UDCUP PO PRN (11:14)
[2023-03-21] MEDS ORDERED: traZODone HCl 50 MG TAB PO PRN (15:30)
[2023-03-21] MEDS: cefTRIAXone\\ROCEPHIN 1 GM in Sodium Chloride 0.9% 100 ML IVPB SCH (16:36)
[2023-03-21] MEDS: Atorvastatin Calcium 10 MG TAB PO SCH (21:25)
[2023-03-22 05:34] LABS: #Monocytes 0.7 thou/uL (0.11-0.59); #Neutrophils 7.9 thou/uL (1.40-6.50); %Basophils 0.2 % (0.0-1.0); %Eosinophils 0.1 % (0.0-10.0); %Monocytes 6.9 % (0.0-10.0); %Neutrophils 83.3 % (42.0-75.0); Hemoglobin 14.1 g/dL (14.0-18.0); Mean Corpuscular HGB CONC 32.3 g/dL (32.0-36.0); Mean Corpuscular Hemoglobin 30.2 pg (27.0-31.0); Mean Corpuscular Volume 93.6 fl (78.0-98.0); Mean Platelet Volume 9.4 fL (7.4-10.4); Platelet Count 231 10x3/uL (130-400); RBC Distribution Width 14.3 % (11.5-14.5); Red Blood Cell (RBC) Count 4.67 mill/uL (4.70-6.10); White Blood Cell (WBC) Count 9.5 10x3/uL (4.8-10.8)
[2023-03-22 05:54] LABS: Anion Gap 8 mmol/L (10-20); BUN (Urea Nitrogen) 17 mg/dL (8.4-25.7); Calc. Creatinine Clearance 98 mL/min (70-130); Calcium 8.8 mg/dL (7.8-10.44); Carbon Dioxide 25 mmol/L (23-31); Chloride 108 mmol/L (98-107); Estimated GFR 95; Glucose 127 mg/dL (80-115); Potassium 4.6 mmol/L (3.5-5.1); Sodium 136 mmol/L (136-145)
[2023-03-22] MEDS: Bisoprolol Fumarate 5 MG TAB PO SCH (09:26)
[2023-03-22] MEDS: FLUoxetine HCl 10 MG CAP PO SCH (09:26)
[2023-03-22] MEDS: Gabapentin 300 MG CAP PO SCH ×2 (09:27→21:32)
[2023-03-22] MEDS: Losartan 25 MG TAB PO SCH (09:27)
[2023-03-22] MEDS: cefTRIAXone\\ROCEPHIN 1 GM in Sodium Chloride 0.9% 100 ML IVPB SCH (15:41)
[2023-03-22] MEDS: Cefdinir 300 MG CAP PO SCH (21:32)
[2023-03-22] MEDS: Atorvastatin Calcium 10 MG TAB PO SCH (21:32)
[2023-03-23 06:07] VITALS: TEMP 97.6
[2023-03-23] MEDS: Bisoprolol Fumarate 5 MG TAB PO SCH (08:20)
[2023-03-23] MEDS: FLUoxetine HCl 10 MG CAP PO SCH (08:20)
[2023-03-23] MEDS: Cefdinir 300 MG CAP PO SCH (08:21)
[2023-03-23] MEDS: Losartan 25 MG TAB PO SCH (08:21)
[2023-03-23] MEDS: Gabapentin 300 MG CAP PO SCH (08:21)
[2023-03-23] MEDS ORDERED: Ipratropium/Albuterol 3 ML NEB NEB SCH (13:00)
[2023-03-23 16:54] VITALS: BP 114/71
== END 2023-03-23 17:04 | disposition home health service (06) | DRG 189 ==
LOC: ERS 19:24 → 2NO 23:34 → T4-A 03-22 14:23
PROVIDERS: ADMIT Student in an Organized Health Care Education/Training Program; ATTEND Internal Medicine
DX: J96.21 Acute and chronic respiratory failure with hypoxia (principal); E78.5 Hyperlipidemia, unspecified; I10 Essential (primary) hypertension; I25.2 Old myocardial infarction; I25.10 Atherosclerotic heart disease of native coronary artery without angina pectoris; K21.9 Gastro-esophageal reflux disease without esophagitis; Z96.642 Presence of left artificial hip joint; Z20.822 Contact with and (suspected) exposure to COVID-19; Z90.89 Acquired absence of other organs; Z98.890 Other specified postprocedural states; Z95.1 Presence of aortocoronary bypass graft; Z87.891 Personal history of nicotine dependence; Z79.899 Other long term (current) drug therapy; Z88.5 Allergy status to narcotic agent; J20.8 Acute bronchitis due to other specified organisms
CPT/HCPCS: 36415; 71275; 74177; 80048; 80053; 83605; 83690; 83880; 84484; 85025; 86140; 87040; 93005; 94640; 94760; J0696; J1100; J3490; J7620; Q9967

== ENCOUNTER 2023-04-20 12:39 | Outpatient (CLI) | payer MEDICARE | END 2023-04-20 12:40 | disposition home or self-care (01) | LOC: RAD 12:39 | PROVIDERS: ATTEND Internal Medicine Critical Care Medicine | DX: J84.9 Interstitial pulmonary disease, unspecified (principal); J98.6 Disorders of diaphragm; R91.8 Other nonspecific abnormal finding of lung field | CPT/HCPCS: 71250; 76000 ==

== ENCOUNTER 2025-08-18 14:09 | Inpatient (IN) | payer MEDICARE ==
[2025-08-18 15:03] LABS: #Basophils 0.03 10x3/uL (0.0-0.2); #Eosinophils 0.06 10x3/uL (0.0-0.7); #Monocytes 0.83 10x3/uL (0.11-0.59); #Neutrophils 7.48 10x3/uL (1.40-6.50); %Basophils 0.3 % (0.0-1.0); %Eosinophils 0.6 % (0.0-10.0); %Lymphocytes 9.0 % (21.0-51.0); %Monocytes 9.0 % (0.0-10.0); %Neutrophils 80.7 % (42.0-75.0); Hematocrit 48.4 % (42.0-52.0); Hemoglobin 15.4 g/dL (14.0-18.0); Mean Corpuscular Hemoglobin 28.9 pg (27.0-31.0); Mean Corpuscular Volume 91.0 fL (78.0-98.0); Platelet Count 135 10x3/uL (130-400); Red Blood Cell (RBC) Count 5.32 mill/uL (4.70-6.10); White Blood Cell (WBC) Count 9.27 10x3/uL (4.8-10.8)
[2025-08-18] MEDS ORDERED: Acetaminophen 325 MG TAB ONE (15:04)
[2025-08-18] MEDS ORDERED: cefTRIAXone (ROCEPHIN) 2 GM VIAL ONE (15:04)
[2025-08-18] MEDS: Acetaminophen 325 MG TAB PO SCH (15:08)
[2025-08-18 15:10] LABS: INR-International Normal Ratio 1.0; PTT 23.9 sec (22.9-36.1); Prothrombin Time 13.1 sec (12.0-14.7)
[2025-08-18 15:17] LABS: ALT (SGPT) 20 U/L (Less than 45); AST (SGOT) 32 U/L (11-34); Albumin 4.0 g/dL (3.1-4.5); Alkaline Phosphatase 91 U/L (40-110); Anion Gap 21 mmol/L (10-20); BUN (Urea Nitrogen) 9 mg/dL (8.4-25.7); Bilirubin, Total 0.8 mg/dL (0.3-1.2); Calc. Creatinine Clearance 0 mL/min (70-130); Calcium 9.5 mg/dL (7.8-10.44); Carbon Dioxide 25 mmol/L (23-31); Chloride 101 mmol/L (98-107); Globulin 3.9 g/dL (2.4-3.5); Glucose 151 mg/dL (83-110); Potassium 4.5 mmol/L (3.5-5.1); Sodium 142 mmol/L (136-145)
[2025-08-18] MEDS ORDERED: LevoFLOXacin 750 mg/D5W 150 ml Premix Bag ONE (15:51)
[2025-08-18] MEDS ORDERED: Senokot S 8.6-50 MG TAB PO PRN (17:04)
[2025-08-18] MEDS ORDERED: Ondansetron PF 4 MG/2 ML Vial IVP PRN (17:04)
[2025-08-18] MEDS ORDERED: VANCOMYCIN 2 GRAM/400 ML BAG 400 ML ONE (17:18)
[2025-08-18 18:55] LABS: Bacteria/HPF None Seen HPF (None Seen); CAUTI Indications for Culture Fever or rigors; Glucose, Urine (Dipstick) Normal (Negative); Leukocyte Negative Leu/uL (Negative); Protein, Urine (Dipstick) Negative (Neg-Trace); RBC/HPF None Seen HPF (0-3); Specific Gravity, Urine 1.008 (1.002-1.036); WBC/HPF 0-3 HPF (0-3)
[2025-08-18 19:09] LABS: Urine Culture Reflex No No
[2025-08-18 20:28] LABS: Legionella Urinary Ag Negative (Negative); Strep pneumo Urine Ag NEGATIVE (NEGATIVE)
[2025-08-18 21:51] VITALS: BMI 30.7
[2025-08-19] MEDS: Melatonin 3 MG TAB PO PRN (00:18)
[2025-08-19] MEDS: Guaifenesin DM 100-10/5 ML UDCUP PO PRN (00:19)
[2025-08-19 05:57] LABS: #Basophils Less than 0.03 10x3/uL (0.0-0.2); #Eosinophils 0.06 10x3/uL (0.0-0.7); #Monocytes 0.81 10x3/uL (0.11-0.59); #Neutrophils 5.02 10x3/uL (1.40-6.50); %Basophils 0.3 % (0.0-1.0); %Eosinophils 0.9 % (0.0-10.0); %Lymphocytes 8.6 % (21.0-51.0); %Monocytes 12.5 % (0.0-10.0); %Neutrophils 77.4 % (42.0-75.0); Hematocrit 45.7 % (42.0-52.0); Hemoglobin 13.7 g/dL (14.0-18.0); Mean Corpuscular Hemoglobin 28.7 pg (27.0-31.0); Mean Corpuscular Volume 95.6 fL (78.0-98.0); Platelet Count 121 10x3/uL (130-400); Red Blood Cell (RBC) Count 4.78 mill/uL (4.70-6.10); White Blood Cell (WBC) Count 6.49 10x3/uL (4.8-10.8)
[2025-08-19 06:26] LABS: Anion Gap 16 mmol/L (10-20); BUN (Urea Nitrogen) 8 mg/dL (8.4-25.7); Calc. Creatinine Clearance 102 mL/min (70-130); Calcium 8.8 mg/dL (7.8-10.44); Carbon Dioxide 26 mmol/L (23-31); Chloride 106 mmol/L (98-107); Glucose 107 mg/dL (83-110); Potassium 3.8 mmol/L (3.5-5.1); Sodium 144 mmol/L (136-145)
[2025-08-19] MEDS: Enoxaparin 40 MG (0.4 mL) SYRINGE SC SCH (08:13)
[2025-08-19] MEDS: predniSONE 20 MG TAB PO SCH (11:44)
[2025-08-19] MEDS: cefTRIAXone\\ROCEPHIN 2 GM in Sodium Chloride 0.9% 100 ML IVPB SCH (15:06)
[2025-08-19] MEDS: Gabapentin 300 MG CAP PO SCH (20:20)
[2025-08-20 08:03] VITALS: BP 135/79; TEMP 97.6
[2025-08-20] MEDS: predniSONE 20 MG TAB PO SCH (09:06)
[2025-08-20] MEDS: Pantoprazole 40 MG DR.TAB PO SCH (09:06)
[2025-08-20] MEDS ORDERED: NIRMATRELVIR 150 MG (X 2)/RITONAVIR 100 MG TAB PO SCH (21:00)
== END 2025-08-20 16:20 | disposition home or self-care (01) | DRG 177 ==
LOC: ERS 14:09 → OBS 17:04
PROVIDERS: ADMIT Hospitalist; ATTEND Internal Medicine
DX: U07.1 COVID-19 (principal); J96.21 Acute and chronic respiratory failure with hypoxia; R65.10 Systemic inflammatory response syndrome (SIRS) of non-infectious origin without acute organ dysfunction; I25.10 Atherosclerotic heart disease of native coronary artery without angina pectoris; K21.9 Gastro-esophageal reflux disease without esophagitis; E78.5 Hyperlipidemia, unspecified; I10 Essential (primary) hypertension; F41.9 Anxiety disorder, unspecified; Z96.642 Presence of left artificial hip joint; Z99.81 Dependence on supplemental oxygen; Z88.5 Allergy status to narcotic agent; Z98.890 Other specified postprocedural states; Z87.891 Personal history of nicotine dependence; Z95.1 Presence of aortocoronary bypass graft
CPT/HCPCS: 36415; 71045; 80048; 80053; 81001; 83605; 84145; 84484; 85025; 85610; 85730; 87040; 87428; 87449; 87633; 87899; 93005; 94760; 96365; 96366; 96367; J0696; J1650; J1956; J3375; J7512